=== PATIENT | female | born 1975 | race Caucasian/White ===

== ENCOUNTER 2025-09-04 19:43 | Outpatient (CLI) | payer BC, SELFPAY | END 2025-09-04 19:44 | disposition home or self-care (01) | LOC: AMB 09-05 14:58 | PROVIDERS: Visit Provider Emergency Medicine | DX: S89.91XA Unspecified injury of right lower leg, initial encounter (principal); W19.XXXA Unspecified fall, initial encounter; Y92.009 Unspecified place in unspecified non-institutional (private) residence as the place of occurrence of the external cause | CPT/HCPCS: A0425; A0427 ==

== ENCOUNTER 2025-09-04 20:16 | Day surgery (SDC) | payer BC, SELFPAY ==
--- OUTSIDE RECORDS SUMMARY | 2025-08-14 16:00 | XMS_ITS | Encounter Summary ---
[facility] [address], [place] [address] Care Team Providers Care Signals Intelligence Superintendent Name Role Phone Fior Leo PA-C Primary Care Provider [phone]- [phone] Reason for Referral * Procedure/Equipment (Routine) - Authorized Specialty Diagnoses / Procedures Referred By Contac t Referred To Contact Diagnoses Hypersomnia Procedures Sleep Diagnostic Tests: HST Jillian Desai MD [address] [place] [address] [address] [place] [address] Phone: tel: fax: Referral ID Status Reason Start Date Expiration Date V isits Requested Visits Authorized [id number] Authorized 08/14/2025 11/13/2025 1 1 Encounter Details Date Type Department Care Team (Late st Contact Info) Description 08/14/2025 4:00 PM CDT [facility] [address] [place] [address] [id number] Jillian Desai MD [address] [place] [address] [address] [place], [place] [id number] Hypersomnia (Primary Dx) Social History Tobacco Use Types Packs/Day Years Used Date Smoking Tobacco: Every Day Cigarettes 1 20 Smokeless Tobacco: Never Comments:Smoking History Pac ks/day: Alcohol Use Standard Drinks/Week Comments Yes 6 (1 standard drink = 0.6 oz pur e alcohol) 2-3 beers on some weekend PHQ-2 Answer Date Recorded PHQ-2 Score 0 07/09/2025 Hunger Vital Sign Answer Date Recorded Within the past 12 months, y ou worried that your food would run out before you got the money to buy more. Never true Within the past 12 months, t he food you bought just didn't last and you didn't have money to get more. Sometimes true PRAPARE - Transportation Answer Date Re corded In the past 12 months, has l ack of transportation kept you from medical appointments or from getting medications? No 06/15 In the past 12 months, has l ack of transportation kept you from meetings, work, or from getting things needed for daily living? No 07/08/2025 Housing Stability Vital Sign Answer Marvin e Recorded In the last 12 months, was t here a time when you were not able to pay the mortgage or rent on time? Yes 07/08/2025 In the past 12 months, how m any times have you moved where you were living? 0 07/08/2025 At any time in the past 12 m [facility], were you homeless or living in a skilled nursing (including now)? No 07/08/2025 Comments No Sex and Gender Information Value Date Recorded Sex Assigned at Not on file Legal Sex Female 6:31 AM CDT Gender Identity Not on file Sexual Orientation Not on file documented as of this encounter Patient Instructions * Patient Instructions* Jillian Desai MD - 08/14/2025 4:00 PM CDT Possible Sleep Apnea - Home sleep study - follow up me or Sleep [facility] If you have not heard in a week please call [phone] If you need to check benefits and coverage for the Home Sleep Study: Procedural Code: 06116 documented in this encounter Progress Notes * Jillian Desai MD - 08/14/2025 12:00 AM CDT NAME: PETER FOLEY CSN: [id number] CLINIC NOTE SLEEP EVALUATION DATE OF SERVICE: 08/14/2025 : 1975 SUBJECTIVE: She is a 50-year-old woman being seen via telemedicine for possible sleep-disordered breathing and excessive daytime hypersomnolence. She does snore very loudly, sometimes wakes herself up in the middle of the night. This has been going on for over a year. She is quite sleepy at work. She typically goes to bed at 9 and 10, and is up at 4:30 for work. 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 Sometimes, she does fall asleep at her job. On weekends, she will sleep longer. She takes 3-4 naps on the weekends, 1-2 during the week. She has been told she snored. She has 2 caffeinated beverages per day. Her [place] Sleepiness Score is 10. Her brother has obstructive sleep apnea and her mother is treated for narcolepsy. BMI is 37. ASSESSMENT AND RECOMMENDATIONS: Possible sleep-disordered breathing. Given her loud snoring and severe daytime hypersomnolence, there is a chance she has obstructive sleep apnea. Given the family history for narcolepsy, we did discuss the diagnosis and treatment of both. After discussion, we will proceed with a home polysomnogram. She will then follow up in Sleep Clinic. If she does get treated for sleep apnea, then we would have to confirm that her daytime hypersomnolence has improved. If her sleep study is nondiagnostic, I would then consider an in-lab study given her very severe daytime hypersomnolence. Her questions were answered. JILLIAN DESAI MD ANIYA/AQS /[id number] documented in this encounter Plan of Treatment Upcoming Encounters Date Type Department Care Team (Late st Contact Info) Description 12/03/2025 11:30 AM LINUX UNIX SYSTEM ADMINISTRATOR Telemedicine [place] [id number] Psychiatry [address] [facility] [place] [address] Yadira Amaya MD [address] [place] [address] 02/12/2026 2:00 PM CDT Telemedicine [facility] [address] [facility] [address] [place] [address] Rossi Dowd PALynnC [address] [place] [address] 02/12/2026 3:00 PM CDT Telemedicine [facility] [address] [facility] [address] [place] [address] Carmelina Joseph, SHANNANN, LD [address] [place], [place] [phone] Scheduled Orders Name Type Priority Associated Diagnoses Orde r Schedule Sleep Diagnostic Tests: HST Sleep Study Routine Hypersomnia 1 Occurrences starting 08/14/2025 documented as of this encounter Visit Diagnoses Diagnosis Hypersomnia- Primary Hypersomnia, unspecified documented in this encounter Care Teams Signals Intelligence Superintendent Relationship Specialty Start Date End Date Fior Leo, PA-C [address] [place] [address] PCP - General Physician Dietetic Aide 05/13/15 documented as of this encounter
--- OUTSIDE RECORDS SUMMARY | 2025-08-20 09:30 | XMS_ITS | Encounter Summary ---
Author Organization [facility] Address [address], [place] [address] Care Team Providers Care Sales Route Driver Helper Name Role Phone Fior Leo PA-C Primary Care Provider [phone]- [phone] Encounter Details Date Type Department Care Team (Late st Contact Info) Description 08/20/2025 9:30 AM CDT Telemedicine [place] [address] Psychiatry [address] [facility]. [place], [place] [id number] Yadira Amaya MD [address] [place], [place] [id number] Bipolar I disorder in remission ([facility]C) (Primary Dx); PTSD (post-traumatic stress disorder) ([facility]); Borderline personality disorder ([facility]); Fibromyalgia Social History Tobacco Use Types Packs/Day Years [...] any time in the past 12 m [facility], were you homeless or living in a [facility] (including now)? No 07/08/2025 Comments No Sex and Gender Information Value Date Recorded Sex Assigned at Not on file Legal Sex Female 6:31 AM CDT Gender Identity Not on file Sexual Orientation Not on file documented as of this encounter Progress Notes * Yadira Amaya MD - 08/20/2025 9:30 AM CDT PSYCHIATRY FOLLOW-UP TELEHEALTH (VIDEO) VISIT This appointment was conducted via telehealth (video, later switched to video for tech reasons) as it is the patient???s preference and it is appropriate for the treatment being provided. Patient location: home, Clinician location: clinic ID/CC: Ms. Elam is a very pleasant 50 y.o. female presenting today for treatment of bipolar disorder, BPD and PTSD. INTERVAL HISTORY: The patient's last visit with me was about 3 months ago, at which time propanolol dosing was changed for better treatment of anxiety and restlessness. She states today she's been taking propanolol when she feels angry and agitated and it helps calm her down. No dizziness or sedation from it, but feels a little tired. This helps her at work when she gets really angry and tearful. She's open to an increased dose. It also helps her to call her mom and take deep breaths. Work has been really stressful lately and worsening her chronic joint pain. She got hired at a different job for the same company but they areslow rolling the paperwork, which is frustrating for her. Discussed ways of approaching HR professionally. Her mood has been good despite the work stress. She got a new puppy and it's going really well, brings her jaye. He's made me feel happy, every day I'm excited to go home. Anxiety has been ok. She'sdoing really well at home with limited stress. She was recently referred for a home sleep study due to risk factors for KEISHA. She sleeps well but doesn't feel rested in the day. She was also referred to the bariatric clinic but not able to get in until February. She denies s/s of soheila. She denies SI. She's taking each of her medications as prescribed, no new issues. Denies all s/s of TD. RATING SCALES: PHQ-9: not completed PANCHO-7: not completed Past Medications: Klonopin (helpful for panic), Buspar (since 2011, no effect), Duloxetine (up to 120 mg, decreased due to thyroid, helpful at 120 mg), lithium (seems like it's trying to help but dose too low, never been at higher than 600 mg/day), Seroquel (initially helpful for sleep and mood but lost effect, makes her groggy and hungry), Paxil (no sex drive), Lexapro (hives), Nortriptyline (anger), Wellbutrin (got varela), Zoloft (varela), Effexor (can't remember but no effect), Depakote (got sick), Abilify (no effect but didn't get a full trial), Lamictal (took in 2011, caused rash), Gabapentin (took for pain, can't remember affect on anxiety), Geodon (akathisia), trazodone (vivid dreams), hydroxyzine (rash, possible allergy), propanolol (no effect), Latuda (teeth grinding), Ambien (sleep walking/eating/driving). Never been on Invega, trileptal or tegretol. PERTINENT REVIEW OF SYSTEMS: As per history, otherwise negative. MENTAL STATUS EXAM: General: Pleasant, open, cooperative. Sitting at home alone. Speech: Normal rate and volume, well-articulated Mood: good Affect: appears euthymic, flexible, smiles easily, no tearfulness Thought Process: Coherent and relevant, no loose associations, good historian, not pressured Thought Content: Denies SI Orientation: Full Recent/Remote Memory: Not formally tested but normal by history and general recall of past events generally intact. Concentration/Attention: Good Language: Appropriate use Fund of Knowledge: Adequate, estimated as normal intelligence Insight: Improving Judgement: Fair LABORATORY and IMAGING DATA: Lab Results Component Value Date Hemoglobin A1C 5.3 02/26/2021 Hemoglobin A1C (Rapid) 5.1 04/24/2025 Lab Results Component Value Date Cholesterol 221 (H) 04/24/2025 HDL Cholesterol 66 04/24/2025 Triglyceride 112 04/24/2025 LDL, Calculated 133 (H) 04/24/2025 DIAGNOSES: ICD-10-CM 1. Bipolar I disorder in remission ([facility]) F31.70 2. PTSD (post-traumatic stress disorder) ([facility]) F43.10 3. Borderline personality disorder ([facility]) F60.3 4. Fibromyalgia M79.7 ASSESSMENT and PLAN: -- Increase propanolol to 20-30 mg bid prn for anxiety and restlessness. Hold for any s/s of hypotension. -- Continue Abilify 10 mg daily for mood stabilization and anxiety. Pt is aware of common and serious side effects of the medication and pt consents to treatment. Benefits outweigh this risk at this point. Defer metabolic labs to PCP/bariatric clinic. Monitor for TD. -- Continue bupropion XL 300 mg daily for depression, tolerating increased dose well. Monitor for recurrence of tremor, anxiety or cognitive side effects. -- Continue duloxetine 60 mg BID, helpful for FM pain and anxiety, longstanding dose. -- Continue gabapentin 300-600 mg qAM, 300-600 q noon and 1200 mg qPM for anxiety and pain. Will defer dose changes for pain to PMR/rheumatology. -- Follow up in 3 months, sooner if needed. Suicide assessment: Based on the patient's DSM diagnoses, past psychiatric history, current mental status examination, race, age, gender, and social supports, the patient's current risk of suicide isjudged as: low The treatment plan was reviewed with the patient, including both common and serious side effects ofrelevant medications. The patient has consented to the treatment outlined above. The patient was advised at initial visit to call 911 for active suicidal ideation and has been given my contact information for any other concerns or worsening symptoms. documented in this encounter Plan of Treatment Upcoming Encounters Date Type Department Care Team (Late st Contact Info) Description 12/03/2025 11:30 AM SF[employer] SOLUTION ARCHITECT Telemedicine [facility] [address] [place] [address]. [place] [address] Yadira Amaya MD [address] [place] [address] 02/12/2026 2:00 PM CDT Telemedicine [facility] [address] [facility] [address] [place] [address] Rossi Dowd PALynnC [address] [place] [address] 02/12/2026 3:00 PM CDT Telemedicine [facility] [address] [facility] [address] [place] [address] Carmelina Joseph RDN, LD [address] [place] [address] documented as of this encounter Visit Diagnoses Diagnosis Bipolar I disorder in remission (HRC)- Primary PTSD (post-traumatic stress disorder) ([facility]) Posttraumatic stress disorder Borderline personality disorder ([facility]) Borderline personality disorder Fibromyalgia Mylagia and myositis, unspecified documented in this encounter Care Teams Sales Route Driver Helper Relationship Specialty Start Date End Date Fior Leo, PA-C [address], [place] [id number] PCP - General Physician Systems Mgr 05/13/15 documented as of this encounter
--- OUTSIDE RECORDS SUMMARY | 2025-09-04 20:19 | XMS_ITS | Clinical Summary ---
Author Organization Formerly [facility] Address [address], [place] [address] Care Team Providers Care Child And Adolescent Therapist Name Role Phone Fior Leo PA-C Primary Care Provider [phone] Source Comments You are receiving this document as you are listed as the primary care provider,follow-up provider, or the patient has been referred to you for consultation.This is in compliance with the Medicare and[facility] E[facility] Incentive Program,which states Providers who transition their patient to another setting of careor provider of care or refers their patient to another provider of care shouldprovide summary care record for each transition of care or referral. [facility] Allergies Active Allergy Reactions Criticality Noted Date Comments Azithromycin 08/05/2004 PN: LW Reaction: EDEMA, GENERALIZED Ciprofloxacin Anaphylaxis High 07/06/2012 Cyclobenzaprine Anaphylaxis High 11/03/2010 Escitalopram Breathing Difficulty,Anaphylaxi s High 11/03/2010 Escitalopram Oxalate 03/25/2004 PN: LW Reaction: HIVES (Lexapro) Fluocinolone Anaphylaxis High 11/03/2010 Hydroxyzine Rash Low 12/21/2011 Lamotrigine 04/15/2005 PN: LW Reaction: Rash, Generalized (Lamictal) Escitalopram Oxalate Anaphylaxis High 07/06/2012 Nortriptyline Other, see comments 10/31/2014 PN: aggression, mood changes, hostility Penicillins Anaphylaxis High 10/14/2003 PN: LW Reaction: > Heart Rate,Palpitation Sulfa Antibiotics Anaphylaxis High 10/14/2003 PN: LW Reaction: ANAPHYLAXIS Trazodone Other, see comments 12/06/2011 Weird dreams Medications omeprazole (PRILOSEC) 20 MG capsuleIndicat ions:Abdominal bloating TAKE 1 CAPSULE BY MOUTH DAILY 1 HOUR BEFORE A MEAL. 90 Capsule 2 01/11/20 23 Active ALBUterol sulfate HFA 108 (90 Base) MCG/ACT inhaler Inhale 1-2 puffs by mouth every 4-6 hours as needed for Inhaler Use Indications: wheezing. Shake well before use. Do not exceed 12 puffs in 24 hours. 1 Each 06/30/20 23 Active traMADol (ULTRAM) 50 MG tablet Take 1 Tablet (50 mg) by mouth two times daily as needed. 07/25/20 23 Active ALBUterol sulfate HFA 108 (90 Base) MCG/ACT inhaler Inhale 2 Puffs every 4 hours as needed for Wheezing. 1 Each 11/01/20 23 Active ALBUterol sulfate HFA 108 (90 Base) MCG/ACT inhaler Inhale 2 Puffs every 4 hours as needed for Wheezing. 1 Each 11/20/19 25 Active ARIPiprazole (ABILIFY) 10 MG tablet Take 1 Tablet (10 mg) by mouth daily. 90 Tablet 3 02/20/20 25 Active meloxicam (MOBIC) 7.5 MG tablet Take 1-2 Tablets (7.5-15 mg) by mouth daily. 05/07/20 25 Active buPROPion (WELLBUTRIN XL) 300 MG 24 hour release tablet Take 1 tablet by mouth once daily 90 Tablet 08/13/20 25 Active propranolol (INDERAL) 10 MG tablet Take 2-3 Tablets (20-30 mg) by mouth two times daily as needed for Other (anxiety, restlessness , tremor). 30 Tablet 5 08/20/20 25 026 Active gabapentin (NEURONTIN) 300 MG capsule TAKE 1 TO 2 CAPSULES BY MOUTH EVERY MORNING, 1 TO 2 CAPSULES AT NOON AND 4 CAPSULES EVERY EVENING NEEDED FOR PAIN AND ANXIETY. 240 Capsule 5 08/20/20 25 Active DULoxetine (CYMBALTA) 60 MG delayed release capsule Take 1 Capsule (60 mg) by mouth two times a day. 180 Capsule 3 08/20/20 25 Active buPROPion (WELLBUTRIN XL) 300 MG 24 hour release tablet Take 1 Tablet (300 mg) by mouth daily. 90 Tablet 3 08/16/20 24 025 Discontinued DULoxetine (CYMBALTA) 60 MG delayed release capsule Take 1 Capsule (60 mg) by mouth two times a day. 180 Capsule 02/20/20 25 025 Discontinued(*M ed change OR same med OR reorder, new dose/directions ) gabapentin (NEURONTIN) 300 MG capsule TAKE 1 TO 2 CAPSULES BY MOUTH EVERY MORNING, 1 TO 2 CAPSULES AT NOON AND 4 CAPSULES EVERY EVENING NEEDED FOR PAIN AND ANXIETY. 240 Capsule 5 02/20/20 25 025 Discontinued(*M ed change OR same med OR reorder, new dose/directions ) propranolol (INDERAL) 10 MG tablet Take 1-2 Tablets (10-20 mg) by mouth two times daily as needed for Other (anxiety, restlessness , tremor). 05/20/20 25 025 Discontinued(*M ed change OR same med OR reorder, new dose/directions ) Active Problems Problem Noted Date Diagnosed Date Vitamin D deficiency 02/25/2023 Hyperlipidemia 07/12/2016 Borderline personality disorder 05/14/2015 Learning disorder 04/03/2015 Fibromyalgia 07/06/2012 Anxiety 07/06/2012 Tobacco use disorder 01/09/2010 Overview (07/06/2017): Tobacco Abuse Backache 01/09/2010 Overview (07/06/2017): Pain Back Myalgia 04/01/2008 Overview (07/06/2017): Fibromyalgia Bipolar I disorder, most recent episode depresse d, mild 04/14/2006 Overview (07/06/2017): LW Onset: ; Bipolar I disorder with depression, in remission Migraine 04/20/2003 Overview (07/06/2017): Migraine Without Aura Resolved Problems Problem Noted Date Diagnosed Date Resolved Date Borderline personality disorder 06/16/2015 08/23/2016 Bipolar 1 disorder, mixed 05/14/2015 PTSD (post-traumatic stress disorder) 05/14/2015 12/07/2017 PTSD (post-traumatic stress disorder) 04/03/2015 09/14/2017 Bipolar disorder 07/06/2012 12/24/2016 Personality disorder 07/06/2012 017 Chemical dependency 12/18/2011 08/20/20 25 Cocaine dependence in remission 10/30/2010 08/20/2025 Depressive disorder 07/27/2004 12/10/19 06 Overview (07/06/2017): LW Onset: [id number] ; Depression NOS Encounter for sterilization 07/27/2004 11/25/2004 Overview (07/06/2017): LW Onset: [id number] ; Tubal Ligation Elective Cocaine abuse in remission 0 02/19/2025 Overview (02/19/2025): This problem was marked as resolved by a user in a SmartForm. Encounters Date Type Department Care Team Description 08/27/2025 E-Visit Specialty Center [facility] [address] [place] [id number] Mychart, Generic Provider 08/20/2025 9:30 AM CDT Telemedicine [place] [address] [place] [address]. [place] [address] Yadira Amaya MD Bipolar I disorder in remission (HRC) (Primary Dx); PTSD (post-traumatic stress disorder) (HRC); Borderline personality disorder (HRC); Fibromyalgia 08/14/2025 4:00 PM CDT Telemedicine Specialty Center [facility] Pulmonary Medicine [address] [place] [id number] Jillian Desai MD Hypersomnia (Primary Dx) 08/14/2025 E-Visit Specialty Center [facility] Pulmonary Medicine [address] [place] [address] Mychart, Generic Provider 08/13/2025 Refill [facility] [address] [place] [address]. [place] [address] Yadira Amaya MD Refill 07/17/2025 E-Visit [facility] [address] [place] [address] [address] [place] [address] Melvi Ziegler 07/10/2025 Results Follow-Up [address] [address] Fior Leo PA-C 07/09/2025 12:15 PM CDT Lab Visit [facility] [address] [place] [id number] Need for hepatitis C screening test; Encounter for long-term (current) use of medications; Elevated blood pressure reading without diagnosis of hypertension; Fatigue, unspecified type 07/09/2025 11:30 AM CDT Office Visit [address] [address] Fior Leo PA-C Well adult exam (Primary Dx); Need for hepatitis C screening test; Encounter for long-term (current) use of medications; Elevated blood pressure reading without diagnosis of hypertension; Fatigue, unspecified type; Snoring; Obesity, Class II, BMI 35-39.9; Vitamin D deficiency (HRC); Fibromyalgia; Tobacco use disorder (HRC) 07/09/2025 E-Visit [address] [address] Fior Leo PA-C 06/14/2025 Nurse Triage [address] [address] Fior Leo PA-C Follow-up 06/11/2025 8:35 AM CDT Ancillary Procedure [facility] [address] [place] [phone] Jose Armando Cisse, NIDA, REFERENCE TEST CLERK Lower abdominal pain 06/11/2025 8:20 AM CDT Office Visit [place] [address] [facility] [address] [place] [phone] Jose Armando Cisse, DEAD MAIL CHECKER, REFERENCE TEST CLERK Dysuria; Lower abdominal pain from Last 3 Months Immunizations Immunization Administration Dates Next Due DTaP 04/13/2006 Flu Vac Preserv Free (3+yrs) 10/20/2015 HepB Adult (Engerix-B, 20+ y rs, 3 dose series) 09/22/2020 HepB Adult (Heplisav-B, 19+ yrs, 2 dose series) 12/27/2022 Influenza IIV4 (Quadrivalent ) 0.5mL (61081) 10/20/2015 Influenza, Unspecified Formulation 12/19/2011 PPSV23 (Pneumovax) 05/31/2018(Deferred: Patient Refused) TDAP (ADACEL) 04/13/2006 Td 06/30/2016,12/10/1999 Family History Medical History Relation Name Comments High Cholesterol Father Mental Disorder Father depression Other[Other] Maternal Grandmother Thyroid Disorder Maternal Grandmother Cancer, Other Other 1 cancer both si porfirio of family Not sure waht Cancer, Breast Other 2 God-mother Diabetes Paternal Grandfather High Cholesterol Paternal Grandfather Diabetes Paternal Grandmother High Cholesterol Paternal Grandmother Amblyopia/Strabismus Negative Family History Cataract Negative Family History Glaucoma Negative Family History Macular Degeneration Negative Family History Retinal Detachment Negative Family History Stroke Negative Family History Relation Name Status Comments Father Alive Mother Alive Brother 1 Alive Brother 2 Alive Brother 3 Alive Daughter 1 Alive Daughter 2 Alive Maternal Grandfather Maternal Grandmother Alive Other 1 Other 2 Paternal Grandfather Paternal Grandmother Sister Alive Son Alive Social History Tobacco Use Types Packs/Day Years Used Date Smoking Tobacco: Every Day Cigarettes 1 20 Smokeless Tobacco: Never Tobacco Cessation:Ready to Q uit: Not Asked; Counseling Given: Not Answered Comments:Smoking History Packs/day: Alcohol Use Standard Drinks/Week Comments Yes 6 [...] any time in the past 12 [facility], were you homeless or living in a retirement (including now)? No 07/08/2025 Comments No Sex and Gender Information Value Date Recorded Sex Assigned at Not on file Legal Sex Female 6:31 AM CDT Gender Identity Not on file Sexual Orientation Not on file Last Filed Vital Signs Vital Sign Reading Time Taken Comments Blood Pressure 123/92 07/09/2025 11:27 AM CDT Pulse 88 07/09/2025 11:27 AM CDT Temperature 36.4 C (97.5 F) 06/11/2025 8:04 AM CDT Respiratory Rate 18 06/11/2025 8:04 AM CDT Oxygen Saturation 100% 06/11/2025 8:04 AM CDT Inhaled Oxygen Concentration - - Weight 100.2 kg (221 lb) 07/09/2025 11:17 AM CDT Height 162.6 cm (5' 4) 02/19/2025 1:23 PM CDT Body Mass Index 37.93 02/19/2025 1:23 PM CDT Plan of Treatment Upcoming Encounters Date Type Department Care Team (Late st Contact Info) Description 12/03/2025 11:30 AM TELEVISION ANCHOR Telemedicine [facility] 3800 Psychiatry [address] [facility] [place] [address] Yadira Amaya MD [address] [place] [address] 02/12/2026 2:00 PM CDT Telemedicine [facility] [address] [facility] [address] [place] [address] Rossi Dowd PALynnC [address] [place] [address] 02/12/2026 3:00 PM CDT Telemedicine [facility] [address] [facility] [address] [place] [address] Carmelina Joseph RDN, LD [address] [place], [place] [id number] Health Maintenance Due Date Last Done Comments Mammogram 1976 Pneumococcal Vaccine (1 of 2 - PCV) 1995 FIT Colon Cancer Screening 2020 HepB Vaccine (3) 02/21/2023 12/27/2022, 09/22/2020 COVID-19 Vaccine (1 - season) 2025 Influenza Vaccine (#1) 2025 5, 10/20/2015, 12/19/2011 DTaP/Tdap/Td Vaccine (4 - Tdap) 06/30/2026 06/30/2016, 04/13/2006, 04/13/2006, Additional history exists Adult Preventive Visit 07/09/2026 , 01/19/2018, 07/06/2012 Zoster/Shingles Vaccine (1 of 2) 2026 Diabetes Screening- (based on age and BMI) 04/24/2028 04/24/2025, 05/20/2022, 02/26/2021, Additional history exists Cervical Cancer Screening 04/24/20302024, 01/19/2018, 01/19/2018, Additional history exists Cholesterol 04/24/2030 04/24/2025, 0705/2022, 02/26/2021, Additional history exists HIV Screening (Preventive Services) Completed 07/06/2012, 07/27/2004, 10/30/1998 Hep C Screening (Preventive Services) Completed 07/09/2025 HepA Vaccine Aged Out No longer eligi ble based on patient's age to complete this topic Hib Vaccine Aged Out No longer eligi ble based on patient's age to complete this topic IPV (Polio) Vaccine Aged Out No longe r eligible based on patient's age to complete this topic MCV4 Vaccine Aged Out No longer eligi ble based on patient's age to complete this topic Meningococcal B Vaccine Aged Out No l onger eligible based on patient's age to complete this topic Procedures Procedure Name Priority Date/Time Associated Diagnosis Comments HEPATITIS C ANTIBODY, WITH REFLEX (ANTI-HCV) Routine 07/09/2025 12:24 PM CDT Need for hepatitis C screening test ELECTROLYTE PANEL Routine 07/09/2025 12: 24 PM CDT Elevated blood pressure reading without diagnosis of hypertension TSH, SENSITIVE Routine 07/09/2025 12:24 PM CDT Fatigue, unspecified type CREATININE / GFR Routine 07/09/2025 12:2 4 PM CDT Encounter for long-term (current) use of medications Elevated blood pressure reading without diagnosis of hypertension XR ABD FLAT/KUB 1 VIEW STAT 06/11/2025 8:40 AM CDT Lower abdominal pain URINALYSIS ROUTINE, MICRO/CULTURE IF POS STAT 06/11/2025 8:07 AM CDT Dysuria HGB A1C Routine 04/24/2025 12:38 PM CDT Screening for diabetes mellitus LIPID PANEL & DIRECT LDL (IF NEEDED) Routine 04/24/2025 12:38 PM CDT Hyperlipidemia, unspecified hyperlipidemia type (HRC) HPV WITH 16 18 GENOTYPING, CERVICAL/ENDOCERVIC AL Routine 04/24/2025 12:34 PM CDT Special screening examination for human papillomavirus (HPV) HIV ANTIBODY Routine 07/06/2012 4:36 PM CDT Screening for HIV (human immunodeficiency virus) from Last 3 Months or Most Recently Relevant to Health Maintenance Results * Creatinine / GFR (07/09/2025 12:24 PM CDT) Creatinine 0.83 0.55 - 1.02 mg/dL 07/09/2025 6:03 PM CDT [facility] GFR, Estimated >60 >60 mL/min/1.7 3m2 07/09/2025 6:03 PM T [facility] Blood Venipuncture / Unknown 07/09/2025 12:24 PM CDT 07/09/2025 12:24 PM CDT Fior Leo PA-C LAB_1 Final Resu lt Performing Organization Address City/[facility]/ZIP Co de Phone Number [facility] CLIA: [id number] [place] [address] * TSH (07/09/2025 12:24 PM CDT) Pathologist [facility] TSH, Sensitive 1.99 0.30 - 4.50 uIU/mL 07/09/2025 7:36 PM CDT [facility] Blood Venipuncture / Unknown 07/09/2025 12:24 PM CDT 07/09/2025 12:24 PM CDT Fior Leo PA-C LAB_1 Final Resu lt [facility] CLIA: [id number] [address] [place] [id number] [place] [address] * Electrolyte Panel (07/09/2025 12:24 PM CDT) Pathologist [facility] Sodium 138 136 - 145 mmol/L 07/09/2025 6:03 PM T [facility] Potassium 3.9 3.5 - 5.1 mmol/L 07/09/2025 6:03 PM T [facility] Chloride 107 98 - 109 mmol/L 07/09/2025 6:03 PM T [facility] CO2 26 20 - 29 mmol/L 07/09/2025 6:03 PM T [facility] Anion Gap 5 6 - 16 mmol/L 07/09/2025 6:03 PM [facility] Blood Venipuncture / Unknown 07/09/2025 12:24 PM CDT 07/09/2025 12:24 PM CDT Fior Leo PA-C LAB_1 Final Resu lt Performing Organization Address [facility]/ZIP Co de Phone Number [facility] CLIA: [id number] [place] [address] * Hepatitis C Antibody, with Reflex (07/09/2025 12:24 PM CDT) Hepatitis C Antibody Negative (Non Reactive) Negative (Non Reactive) 07/09/2025 7:37 PM CDT [facility] Comment:Antibodies to HCV no t detected. Does not exclude the possiblity of exposure to HCV. Blood Venipuncture / Unknown 07/09/2025 12:24 PM CDT 07/09/2025 12:24 PM CDT Fior Leo PA-C LAB_1 Final Resu lt Performing Organization Address [facility] Co de Phone Number [facility] CLIA: [id number] [address] [place] [address] * XR Abd Flat/KUB 1 View (06/11/2025 8:40 AM CDT) Anatomical Region Laterality Modality Abdomen Digital Radiogra phy Narrative 06/11/2025 8:42 AM CDT EXAM: XR ABD FLAT/KUB 1 VIEW INDICATION: lower abd discomfort/bloating COMPARISON: None. FINDINGS: Single-view, two images. Nonobstructive bowel gas pattern. Scattered small to moderate amounts of stool and gas in the colon. No obvious stones are seen overlying the renal shadows, along the expected course of the ureters, or overlying the expected location of the urinary bladder. Signed by: Wesley Jameson 06/11/2025 8:42 AM Procedure Note Wesley Jameson MD - 06/11/2025 EXAM: XR ABD FLAT/KUB 1 VIEW INDICATION: lower abd discomfort/bloating COMPARISON: None. FINDINGS: Single-view, two images. Nonobstructive bowel gas pattern. Scatteredsmall to moderate amounts of stool and gas in the colon. No obviousstones are seen overlying the renal shadows, along the expected course ofthe ureters, or overlying the expected location of the urinary bladder. Signed by: Wesley Jameson 06/11/2025 8:42 AM us Jose Armando Cisse DEAD MAIL CHECKER, REFERENCE TEST CLERK RAD GD Final Re sult * Urinalysis Routine, Micro/Culture if Pos: Clean Catch (06/11/2025 8:07 AM CDT) Urine Microscopic Evaluation Reflex Order Comment Urinalysis results do not meet criteria for urine microscopic evaluation reflex. 06/11/2025 8:18 AM [facility] Color Yellow 06/11/2025 8:18 AM [facility] Clarity Clear Clear 06/11/2025 8:18 AM [facility] Specific [place] 1.015 1.005 - 1.030 06/11/2025 8:18 AM [facility] pH 7.5 5.0 - 8.0 06/11/2025 8:18 AM [facility] Protein Negative Neg/Trace mg/dL 06/11/2025 8:18 AM [facility] Glucose Negative Negative mg/dL 06/11/2025 8:18 AM [facility] Ketones Negative Negative mg/dL 06/11/2025 8:18 AM [facility] Urobilinogen 0.2 <2.0 EU/dL 06/11/2025 8:18 AM [facility] Bilirubin Negative Negative 06/11/2025 8:18 AM [facility] Blood Negative Neg/Trace 06/11/2025 8:18 AM [facility] Nitrite Negative Negative 06/11/2025 8:18 AM [facility] Leukocyte Esterase Negative Negative 06/11/2025 8:18 AM [facility] Source Clean Catch 06/11/2025 8:18 AM [facility] Urine URINE SPECIMEN COLLECTION, CLEAN CATCH / Unknown Non-blood Collection / Unknown 06/11/2025 8:07 AM CDT 06/11/2025 8:13 AM CDT Brad ZURITA LAB_1 Final Result Performing Organization Address [facility]/ZIP Co de Phone Number [facility] [address] [address] [place] [address] * (ABNORMAL) Lipid Panel & Direct LDL (if Needed) (04/24/2025 12:38 PM CDT) Cholesterol 221(H) 0 - 199 mg/dL 04/24/2025 6:36 PM CDT [facility] Triglyceride 112 <=149 mg/dL 04/24/2025 6:36 PM T [facility] HDL Cholesterol 66 >=40 mg/dL 6:36 PM T [facility] LDL, Calculated 133(H) <130 mg/dL 6:36 PM T [facility] Non HDL Chol, Calculated 155 <=159 mg/dL 04/24/2025 6:36 PM T [facility] Cholesterol/HDL Ratio 3.3 <=5.0 04/24/2025 6:36 PM [facility] Hours Fasting 0.0 8 - 12 Hours 04/24/2025 6:36 PM [facility] Blood Venipuncture / Unknown 04/24/2025 12:38 PM CDT 04/24/2025 12:38 PM CDT Fior Leo PA-C LAB_1 Final Resu lt Performing Organization Address City/[facility]/ZIP Co de Phone Number [facility] [address] [place] [address], [facility] * Hgb A1C (04/24/2025 12:38 PM CDT) Hemoglobin A1C (Rapid) 5.1 <=5.6 % 04/24/2025 5:38 PM CDT [facility] Estimated Average Glucose (Calc) 100 < 117 mg/dL 04/24/2025 5:38 PM CDT [facility] Comment:Estimated average gl ucose (eAG) converts A1c into glucose units (mg/dL) and estimates average glucose over the past approximately 3 months. The eAG reference interval (<117 mg/dL) corresponds to an A1c of <5.7%. Blood Venipuncture / Unknown 04/24/2025 12:38 PM CDT 04/24/2025 12:38 PM CDT Mario [facility] - 04/24/2025 5:38 PM CDT The test method used for this Hemoglobin A1c result can experience interference from elevated hemoglobin and other hemoglobin variants. In patients with results that do not correlate clinically, contact the lab for further direction. us Fior Leo PA-C LAB_1 Final Resu lt [facility] [address] [place] [address], [facility] * HPV Genotyping PCR (Cervical/Endocervical ONLY) with Reflex Cytology (Pap) if Indicated (2:34 PM CDT) HPV High Risk Type 16 PCR Not Detected Not detected 04/25/2025 2:[address] [facility] HPV High Risk Type 18 PCR Not Detected Not Detected 04/25/2025 2:[address] [facility] HPV High Risk Other Than 16/18 Not Detected Not detected 04/25/2025 2:[address] [facility] Cervical Broom ENTIRE ENDOCERVIX / Unknown 04/24/2025 12:34 PM CDT 04/24/2025 1:56 PM CDT [facility] - 04/25/2025 2:24 PM CDT The Keith HPV test is a qualitative in vitro test for the detection of Human Papillomavirus in [facility] patient specimens. The test utilizes amplification of target DNA by Polymerase Chain Reaction (PCR) and nucleic acid hybridization for the detection of 14 high-risk (HR) HPV types. The assay tests for high risk types (16, 18, 31, 33, 35, 39, 45, 51, 52, 56, 58, 59, 66, and 68). us Fior B Leo PA-C LAB_1 Final Resu lt [address] [address], [facility] * HIV ANTIBODY (07/06/2012 4:36 PM CDT) HIV 1/2 Antibody Negative (Non Reactive) [facility] Comment: HIV Antibody testing may be falsely negative during the window period. If the patient has had recent exposure (within the past four weeks), consider contacting Infectious Diseases for clarification. 07/06/2012 4:36 PM CDT 07/06/2012 4:45 PM CDT us Yessenia Ontiveros DEAD MAIL CHECKER, REFERENCE TEST CLERK LAB_1 Final R esult [facility] [address] [address] from Last 3 Months or Most Recently Relevant to Health Maintenance Insurance [facility] Advance Directives * Full Code (Latest Code Status on File) Date Activated Date Inactivated Comments 05/30/2015 4:00 PM 06/01/2015 3:45 PM Care Teams Child And Adolescent Therapist Relationship Specialty Start Date End Date Fior Leo PA-C [address] [place] [address] PCP - General Physician Speedboat Driver 05/13/15
--- OUTSIDE RECORDS SUMMARY | 2025-09-04 20:19 | XMS_ITS | Encounter Summary ---
Author Organization [facility] Address [address], [place] [address] Care Team Providers Care Cigarette Paper Tester Name Role Phone Fior Leo PA-C Primary Care Provider +1- [phone] Encounter Details Date Type Department Care Team (Late st Contact Info) Description 08/14/2025 [facility] 39[address] Pulmonary Medicine [address] [place], [place] [address] Mychart, [place] [address] Social History Tobacco Use Types Packs/Day Years [...] any time in the past 12 m [facility], were you homeless or living in a longterm (including now)? No 07/08/2025 Comments No Sex and Gender Information Value Date Recorded Sex Assigned at Not on file Legal Sex Female 6:31 AM CDT Gender Identity Not on file Sexual Orientation Not on file documented as of this encounter Plan of Treatment Upcoming Encounters Date Type Department Care Team (Late st Contact Info) Description 12/03/2025 11:30 AM STATION TENDER Telemedicine [facility] 3800 Psychiatry [address] [facility] [place] [address] Yadira Amaya MD [address] [place] [address] 02/12/2026 2:00 PM CDT Telemedicine [facility] [address] [facility] [address] [place] [address] Rossi Dowd, PALynnC [address] [place] [address] 02/12/2026 3:00 PM CDT Telemedicine [facility] [address] [facility] [address] [place] [address] Carmelina Joseph RDN, LD [address] [place] [address] documented as of this encounter Visit Diagnoses Not on filedocumented in this encounter Care Teams Cigarette Paper Tester Relationship Specialty Start Date End Date Fior Leo PALynnC [facility] [place] [address] PCP - General Physician Early Intervention Specialist 05/13/15 documented as of this encounter
--- OUTSIDE RECORDS SUMMARY | 2025-09-04 20:19 | XMS_ITS | Encounter Summary ---
Author Organization [facility] Address [address] [address] Care Team Providers Care Synthetic Staple Extruder Name Role Phone Fior Leo PA-C Primary Care Provider +1- [phone] Encounter Details Date Type Department Care Team (Late st Contact Info) Description 04/03/2015 Scanned History External to External, [place] [address] EXTERNAL - PSYCHIATRIC EVAL Social History Tobacco Use Types Packs/Day Years Used Date Smoking Tobacco: Every Day Alcohol Use Standard Drinks/Week Comments No 0 (1 standard drink = 0.6 oz pur e alcohol) Comments No Sex and Gender Information Value Date Recorded Sex Assigned at Not on file Legal Sex Female 6:31 AM CDT Gender Identity Not on file Sexual Orientation Not on file documented as of this encounter Plan of Treatment Upcoming Encounters Date Type Department Care Team (Late st Contact Info) Description 12/03/2025 11:30 AM COFFEE SHOP MANAGER Telemedicine [facility] 38[address] Psychiatry [address] [facility] [place], [place] [address] Yadira Amaya MD [address] [place], [place] [address] 02/12/2026 2:00 PM CDT Telemedicine [facility] [address] [facility] [address] [place], [place] [address] Rossi Dowd, PALynnC [address] [place] [address] 02/12/2026 3:00 PM CDT Telemedicine [facility] [address] [facility] [address] [place] [address] Carmelina Joseph RDN, LD [address] [facility] [place] [id number] documented as of this encounter Visit Diagnoses Not on filedocumented in this encounter Additional Health Concerns Infection Onset Date Last Indicated Resolved Time R/O COVID19 05/20/2022 05/20/2022 05/21/2022 1:16 AM CDT R/O COVID19 09/01/2022 09/01/2022 09/02/2022 2:22 AM CDT COVID19 09/01/2022 09/01/2022 09/12/2022 3:17 AM CDT documented as of this encounter Care Teams Synthetic Staple Extruder Relationship Specialty Start Date End Date Fior Leo PALynnC [address] [place] [address] PCP - General Physician Finisher Fine Diamond Dies 05/13/15 documented as of this encounter
--- OUTSIDE RECORDS SUMMARY | 2025-09-04 20:19 | XMS_ITS | Encounter Summary ---
Author Organization [facility] Address [address], [place] [address] Care Team Providers Care Business Intelligence Reporting Analyst Name Role Phone Firo Leo PA-C Primary Care Provider +1- [phone] Encounter Details Date Type Department Care Team (Late st Contact Info) Description 04/17/2015 Scanned History External to External, [place] [address] EXTERNAL - PSYCHIATRIC FOLLOW UP Social History Tobacco Use Types Packs/Day Years [...] Encounters Date Type Department Care Team (Late Contact Info) Description 12/03/2025 11:30 AM SIGNAL WIRER Telemedicine [facility] 3800 Psychiatry [address] [facility] [place], [place] [address] Yadira Amaya MD [address] [place], [place] [address] 02/12/2026 2:00 PM CDT Telemedicine [facility] [address] [facility] [address] [place], [place] [address] Rossi Dowd, PALynnC [address] [place] [address] 02/12/2026 3:00 PM CDT Telemedicine [facility] [address] [facility] [address] [place] [address] Carmelina Joseph RDN, LD [address] [facility] [place] [address] documented as of this encounter Visit Diagnoses Not on filedocumented in this encounter Additional Health Concerns Infection Onset Date Last Indicated Resolved Time R/O COVID19 05/20/2022 05/20/2022 05/21/2022 1:16 AM CDT R/O COVID19 09/01/2022 09/01/2022 09/02/2022 2:22 AM CDT COVID19 09/01/2022 09/01/2022 09/12/2022 3:17 AM CDT documented as of this encounter Care Teams Business Intelligence Reporting Analyst Relationship Specialty Start Date End Date Fior Leo PALynnC [address] [place] [address] PCP - General Physician Surveillance Operator 05/13/15 documented as of this encounter
--- OUTSIDE RECORDS SUMMARY | 2025-09-04 20:19 | XMS_ITS | Encounter Summary ---
Author Organization [facility] Address [address] [address] Care Team Providers Care Senior Project Leader/Team Lead Name Role Phone Fior Leo PA-C Primary Care Provider +1- [phone] Encounter Details Date Type Department Care Team (Late st Contact Info) Description 08/27/2025 [facility] [address] Sleep Lab Beds [address] [place], [place] [address] Mychart, [place] [address] Social History Tobacco Use Types Packs/Day Years [...] time in the past 12 m [facility], were you homeless or living in a penitentiary (including now)? No 07/08/2025 Comments No Sex and Gender Information Value Date Recorded Sex Assigned at Not on file Legal Sex Female 6:31 AM CDT Gender Identity Not on file Sexual Orientation Not on file documented as of this encounter Plan of Treatment Upcoming Encounters Date Type Department Care Team (Late st Contact Info) Description 12/03/2025 11:30 AM TOOL MAKER Telemedicine [facility] 3800 Psychiatry [address] [place] [address] Yadira Amaya MD [address] [place] [address] 02/12/2026 2:00 PM CDT Telemedicine [facility] [address] [facility] [address] [place] [address] Rossi Dowd PALynnC [address] [place] [address] 02/12/2026 3:00 PM CDT Telemedicine [facility] [address] [facility] [address] [place] [address] Carmelina Joseph RDN, LD [address] [place] [address] documented as of this encounter Visit Diagnoses Not on filedocumented in this encounter Care Teams Senior Project Leader/Team Lead Relationship Specialty Start Date End Date Fior Leo PALynnC [facility] [place], [place] [id number] PCP - General Physician Pharmacy Specialist 05/13/15 documented as of this encounter
--- OUTSIDE RECORDS SUMMARY | 2025-09-04 20:19 | XMS_ITS | Clinical Summary ---
Author Organization [facility] Address [address] [place] [address] Care Team Providers Care Airfreight Loading Supervisor Name Role Phone Fior Leo Primary Care Provider [phone] Allergies Active Allergy Reactions Criticality Noted Date Comments Azithromycin 08/05/2004 PN: LW Reaction: EDEMA, GENERALIZED Cyclobenzaprine Anaphylaxis,Shortnes s Of Breath High 11/03/2010 Escitalopram Anaphylaxis,Difficul ty breathing,Shortness Of Breath High 03/25/2004 PN: LW Reaction: HIVES (Lexapro) Fluocinolone Anaphylaxis High 11/03/2010 Hydroxyzine Rash Low 12/21/2011 Lamotrigine Rash Low 04/15/2005 PN: LW Reaction: Rash, Generalized (Lamictal) Nortriptyline Other (See Comments) 10/31/2014 Mood swings, becomes aggressive PN: aggression, mood changes, hostility Penicillins Anaphylaxis,Hives High 10/14/2003 PN: LW Reaction: > Heart Rate,Palpitation Quinolones Anaphylaxis,Shortnes s Of Breath High 10/11/2011 Sulfa Antibiotics Anaphylaxis,Shortnes s Of Breath High 10/14/2003 PN: LW Reaction: ANAPHYLAXIS Trazodone Other (See Comments) 12/06/2011 Weird dreams Medications No known medications Encounters Date Type Department Care Team Description 06/17/2025 Telephone [facility] [address] [place] [address] Shannan Zaragoza RN Results 06/14/2025 12:01 PM CDT - 06/14/2025 3:21 PM CDT Emergency [facility] Emergency Dept [address] [place] [address] Raul Martinez MD Acute cystitis without hematuria (Primary Dx); Pelvic pain Discharge Disposition: Home or Self Care 06/14/2025 Travel from Last 3 Months Social History Tobacco Use Types Packs/Day Years Used Date Smoking Tobacco: Never Assessed Comments No Sex and Gender Information Value Date Recorded Sex Assigned at Not on file Legal Sex Female 11:50 AM CDT Gender Identity Not on file Sexual Orientation Not on file Last Filed Vital Signs Vital Sign Reading Time Taken Comments Blood Pressure 132/96 06/14/2025 3:10 PM CDT Pulse 76 06/14/2025 3:09 PM CDT Temperature 36.4 C (97.5 F) 06/14/2025 12:00 PM CDT Respiratory Rate 18 06/14/2025 3:09 PM CDT Oxygen Saturation 98% 06/14/2025 3:09 PM CDT Inhaled Oxygen Concentration - - Weight 99.1 kg (218 lb 7.6 oz) 06/14/2025 12:00 PM CDT Height 165.1 cm (5' 5) 06/14/2025 12:00 PM CDT Body Mass Index 36.36 06/14/2025 12:00 PM CDT Plan of Treatment Health Maintenance Due Date Last Done Comments ADVANCE CARE PLANNING 1976 ANNUAL REVIEW OF HM ORDERS 1976 CT COLONOGRAPHY 1976 FIT 1976 FLEX SIG 1976 MAMMO SCREENING 1976 sDNA (Cologuard) 1976 COLONOSCOPY 1986 COLORECTAL CANCER SCREENING 1986 HEPATITIS C SCREENING 1994 PAP 1997 LIPID 2016 YEARLY PREVENTIVE VISIT 01/19/2019 01/19/2018 HEPATITIS B VACCINE (3 of 3 - 19+ 3-dose series) 02/21/2023 12/27/2022, 09/22/2020 PHQ-2 (once per calendar year) 2024 COVID-19 VACCINE ( - season) 2025 INFLUENZA VACCINE (#1) 2025 10/20/2015, 2011 DTAP/TDAP/TD VACCINE (5 - Td or Tdap) 06/30/2026 06/30/2016, 04/13/2006, 04/13/2006, Additional history exists ZOSTER VACCINE (1 of 2) 2026 DIABETES SCREENING 06/14/2028 06/14/2025 HIV SCREENING Completed 08/15/2013, 07/06/2012 HPV VACCINE (No Doses Required) Completed MENINGITIS VACCINE Aged Out No longer eligible based on patient's age to complete this topic PNEUMOCOCCAL VACCINE: PEDIATRICS (0 to 5 YEARS) AND AT-RISK PATIENTS (6 to 49 YEARS) Aged Out No longer eligible based on patient's age to complete this topic Procedures Procedure Name Priority Date/Time Associated Diagnosis Comments US PELVIC TRANSABDOMINAL AND TRANSVAGINAL STAT 06/14/2025 2:42 PM CDT URINE CULTURE STAT 06/14/2025 2:00 PM CDT ROUTINE UA WITH MICROSCOPIC REFLEX TO CULTURE STAT 06/14/2025 2:00 PM CDT NEISSERIA GONORRHOEAE PCR STAT 06/14/2025 1:43 PM CDT CHLAMYDIA TRACHOMATIS PCR STAT 06/14/2025 1:43 PM CDT WET PREPARATION STAT 06/14/2025 1:43 PM CDT CBC WITH PLATELETS AND DIFFERENTIAL (LIMITED OCCURRENCES) STAT 06/14/2025 12:25 PM CDT CBC WITH PLATELETS AND DIFFERENTIAL STAT 06/14/2025 12:25 PM CDT LIPASE STAT 06/14/2025 12:25 PM CDT COMPREHENSIVE METABOLIC PANEL (LIMITED OCCURRENCES) STAT 06/14/2025 12:25 PM CDT URINE CULTURE STAT 06/14/2025 12:15 PM CDT HCG QUALITATIVE URINE STAT 06/14/2025 12:15 PM CDT ROUTINE UA WITH MICROSCOPIC REFLEX TO CULTURE STAT 06/14/2025 12:15 PM CDT from Last 3 Months Results * US Pelvic Complete with Transvaginal (06/14/2025 2:42 PM CDT) Anatomical Region Laterality Modality Abdomen/Pelvis Ultrasound 06/14/2025 2:42 PM CDT Impressions 06/14/2025 2:56 PM CDT IMPRESSION: No acute sonographic abnormality in the pelvis. No cause for pelvic pain is identified. Narrative 06/14/2025 2:56 PM CDT EXAM: US PELVIC TRANSABDOMINAL AND TRANSVAGINAL LOCATION: [facility] DATE: 06/14/2025 INDICATION: Pelvic pain. COMPARISON: None. TECHNIQUE: Transabdominal scans were performed. Endovaginal ultrasound was performed to better visualize the adnexa. FINDINGS: UTERUS: 7.7 x 4.8 x 4 cm. No uterine masses. Small complex nabothian cyst in the cervix measures 1.2 cm. ENDOMETRIUM: 6 mm. Normal smooth endometrium. RIGHT OVARY: 2.3 x 1.8 x 1.2 cm. Normal. LEFT OVARY: 3.4 x 2.7 x 1.8 cm. A 2.2 cm simple cyst in the left ovary is likely a dominant follicle. No significant free fluid. Procedure Note Tres Newell MD - 06/14/2025 EXAM: US PELVIC TRANSABDOMINAL AND TRANSVAGINAL LOCATION: [facility] DATE: 06/14/2025 INDICATION: Pelvic pain. COMPARISON: None. TECHNIQUE: Transabdominal scans were performed. Endovaginal ultrasound wasperformed to better visualize the adnexa. FINDINGS: UTERUS: 7.7 x 4.8 x 4 cm. No uterine masses. Small complex nabothian cystin the cervix measures 1.2 cm. ENDOMETRIUM: 6 mm. Normal smooth endometrium. RIGHT OVARY: 2.3 x 1.8 x 1.2 cm. Normal. LEFT OVARY: 3.4 x 2.7 x 1.8 cm. A 2.2 cm simple cyst in the left ovary islikely a dominant follicle. No significant free fluid. IMPRESSION: No acute sonographic abnormality in the pelvis. No cause for pelvic painis identified. us Raul Martinez MD IMG US ORDERABLES Final R esult * (ABNORMAL) UA with Microscopic reflex to Culture (06/14/2025 2:00 PM CDT) Only the most recent of2 resultswithin the time period is included. Color Urine Yellow Colorless, Straw, Light Yellow, Yellow 06/14/2025 2:22 PM CDT LABORATORY Appearance Urine Clear Clear 06/14/20 2:22 PM CDT LABORATORY Glucose Urine Negative Negative mg/dL 06/14/2025 2:22 PM CDT LABORATORY Bilirubin Urine Negative Negative 2:22 PM CDT LABORATORY Ketones Urine Negative Negative mg/dL 06/14/2025 2:22 PM CDT LABORATORY Specific [place] Urine 1.031 1.003 - 1.035 06/14/2025 2:22 PM CDT LABORATORY Blood Urine Negative Negative 06/14/2025 2:22 PM CDT LABORATORY pH Urine 6.5 5.0 - 7.0 06/14/2025 2:22 PM CDT LABORATORY Protein Albumin Urine 10(A) Negative mg/dL 06/14/2025 2:22 PM CDT LABORATORY Urobilinogen Urine 3.0(A) Normal mg/dL 06/14/2025 2:22 PM CDT LABORATORY Nitrite Urine Negative Negative 06/14/2025 2:22 PM CDT LABORATORY Leukocyte Esterase Urine Small(A) Negative 06/14/2025 2:22 PM CDT LABORATORY Bacteria Urine Few(A) None Seen /HPF 06/14/2025 2:22 PM CDT LABORATORY Mucus Urine Present(A) None Seen /LPF 06/14/2025 2:22 PM CDT LABORATORY RBC Urine 5(H) <=2 /HPF 06/14/2025 2:22 PM CDT LABORATORY WBC Urine 17(H) <=5 /HPF 06/14/2025 2:22 PM CDT LABORATORY Squamous Epithelials Urine 1 <=1 /HPF 06/14/2025 2:22 PM CDT LABORATORY Transitional Epithelials Urine <1 <=1 /HPF 06/14/2025 2:22 PM CDT LABORATORY Urine URINE SPECIMEN FROM URINARY CONDUIT / Unknown Non-blood Collection / Unknown 06/14/2025 2:00 PM CDT 06/14/2025 2:06 PM CDT Narrative LABORATORY - 06/14/2025 2:22 PM CDT Urine Culture ordered based on laboratory criteria Raul Martinez MD LAB - URINE ORDERABLES Fi nal Result LABORATORY [facility] Care Lab [address] Lab (1st floor, no room number) [place] [address] * (ABNORMAL) Urine Culture (06/14/2025 2:00 PM CDT) Only the most recent of2 resultswithin the time period is included. [facility] Culture 10,000-50,000 CFU/mL Escherichia coli(A) 06/16/2025 10:48 PM CDT [facility] Culture <10,000 CFU/mL Urogenital megan 06/16/2025 10:48 PM CDT [facility] Urine URINE SPECIMEN FROM URINARY CONDUIT / Unknown Non-blood Collection / Unknown 06/14/2025 2:00 PM CDT 06/14/2025 2:22 PM CDT Narrative Organism Antibiotic Method Susceptibility Escherichia coli Ampicillin RADHA >=32 ug/mL: Resistant Escherichia coli Ampicillin/ Sulbactam RADHA 16 ug/mL: Intermediate Escherichia coli Piperacillin/Tazobactam RADHA <=4 ug/mL: Susceptible Escherichia coli Cefazolin RADHA 4 ug/mL: Susceptible Escherichia coli Ceftazidime RADHA <=0.5 ug/mL: Susceptible Escherichia coli Ceftriaxone RADHA <=0.25 ug/mL: Susceptible Escherichia coli Cefepime RADHA <=0.12 ug/mL: Susceptible Escherichia coli Gentamicin RADHA <=1 ug/mL: Susceptible Escherichia coli Ciprofloxacin RADHA <=0.06 ug/mL: Susceptible Escherichia coli Levofloxacin RADHA <=0.12 ug/mL: Susceptible Escherichia coli Nitrofurantoin RADHA <=16 ug/mL: Susceptible Escherichia coli Trimethoprim/Sulfamethoxazole RADHA <=1/19 ug/mL: Susceptible Raul Martinez MD LAB - MICRO GENERAL ORDER JEN Final Result [facility]AT[facility] Inf. Diseases Diag. Lab [address] [place] [address], [facility] * (ABNORMAL) Wet prep (06/14/2025 1:43 PM CDT) Trichomonas Absent Absent RADHA 06/14/2025 2:01 PM CDT LABORATORY Yeast Absent Absent RADHA 06/14/2025 2:01 PM CDT LABORATORY Clue Cells Absent Absent RADHA 06/14/2025 2:01 PM CDT [facility] LABORATORY WBCs/high power field 1+(A) None RADHA 06/14/2025 2:01 PM CDT LABORATORY Swab VAGINAL STRUCTURE / Unknown Non-blood Collection / Unknown 06/14/2025 1:43 PM CDT 06/14/2025 1:45 PM CDT Raul Martinez MD LAB - MICRO GENERAL ORDER JEN Final Result LABORATORY [facility] Acute Care Lab [address] Lab (1st floor, no room number) [place] [address], [facility] * Neisseria gonorrhoea PCR (06/14/2025 1:43 PM CDT) Pathologist [facility] Department Neisseria gonorrhoeae Negative Negative 06/15/2025 11:01 AM CDT [facility] Comment:Negative for N. gono rrhoeae rRNA by tester food products mediated amplification. A negative result by tester food products mediated amplification does not preclude the presence of C. trachomatis infection because results are dependent on proper and adequate collection, absence of inhibitors and sufficient rRNA to be detected. Neisseria gonorrhoeae Specimen Source Cervix 06/15/2025 11:01 AM CDT [facility] Swab VAGINAL STRUCTURE / Unknown Non-blood Collection / Unknown 06/14/2025 1:43 PM CDT 06/14/2025 1:45 PM CDT Raul Martinez MD LAB - MICRO GENERAL ORDER JEN Final Result [facility] Inf. Diseases Diag. Lab [address] * Chlamydia trachomatis PCR (06/14/2025 1:43 PM CDT) [facility] Chlamydia trachomatis Negative Negative 06/15/2025 11:01 AM CDT [facility] Comment:A negative result by tester food products mediated amplification does not preclude the presence of C. trachomatis infection because results are dependent on proper and adequate collection, absence of inhibitors and sufficient rRNA to be detected. Chlamydia trachomatis Specimen Source Cervix 06/15/2025 11:01 AM CDT [facility] Swab VAGINAL STRUCTURE / Unknown Non-blood Collection / Unknown 06/14/2025 1:43 PM CDT 06/14/2025 1:45 PM CDT Raul Martinez MD LAB - MICRO GENERAL ORDER JEN Final Result Performing Organization Address [facility] Co de Phone Number [facility] Inf. Diseases Diag. Lab [address] * (ABNORMAL) CBC with platelets and differential (06/14/2025 12:25 PM CDT) [facility] WBC Count 10.5 4.0 - 11.0 10e3/uL 06/14/2025 12:38 PM CDT [facility] LAB[facility]ATORY RBC Count 4.36 3.80 - 5.20 10e6/uL 06/14/2025 12:38 PM CDT [facility] LAB[facility]ATORY Hemoglobin 14.6 11.7 - 15.7 g/dL 06/14/2025 12:38 PM CDT [facility] LAB[facility] Hematocrit 42.0 35.0 - 47.0 % 06/14/2025 12:38 PM CDT [facility] MCV 96 78 - 100 fL 06/14/2025 12:38 PM CDT [facility] LAB[facility] MCH 33.5(H) 26.5 - 33.0 pg 06/14/2025 12:38 PM CDT [facility] MCHC 34.8 31.5 - 36.5 g/dL 06/14/2025 12:38 PM CDT [facility] RDW 12.6 10.0 - 15.0 % 06/14/2025 12:38 PM CDT [facility] Platelet Count 330 150 - 450 10e3/uL 06/14/2025 12:38 PM CDT [facility] % Neutrophils 61 % 06/14/2025 12:38 PM CDT [facility] % Lymphocytes 28 % 06/14/2025 12:38 PM CDT [facility] % Monocytes 8 % 06/14/2025 12:38 PM CDT [facility] % Eosinophils 2 % 06/14/2025 12:38 PM CDT [facility] % Basophils 1 % 06/14/2025 12:38 PM CDT [facility] % Immature Granulocytes 1 % 06/14/2025 12:38 PM CDT [facility] LAB[facility]ATORY NRBCs per 100 WBC 0 <1 /100 025 12:38 PM CDT [facility] LAB[facility]AT[facility] Absolute Neutrophils 6.4 1.6 - 8.3 10e3/uL 06/14/2025 12:38 PM CDT [facility] LAB[facility] Absolute Lymphocytes 2.9 0.8 - 5.3 10e3/uL 06/14/2025 12:38 PM CDT [facility] LABORAT[facility] Absolute Monocytes 0.8 0.0 - 1.3 10e3/uL 06/14/2025 12:38 PM CDT [facility] LABORAT[facility] Absolute Eosinophils 0.2 0.0 - 0.7 10e3/uL 06/14/2025 12:38 PM CDT [facility] LABORATORY Absolute Basophils 0.1 0.0 - 0.2 10e3/uL 06/14/2025 12:38 PM CDT [facility] LAB[facility]AT[facility] Absolute Immature Granulocytes 0.1 <=0.4 10e3/uL 06/14/2025 12:38 PM CDT [facility] LAB[facility]AT[facility] Absolute NRBCs 0.0 10e3/uL 06/14/2025 12:38 PM CDT [facility] LAB[facility]ATORY Blood BLOOD SPECIMEN / Unknown Venipuncture / Unknown 06/14/2025 12:25 PM CDT 06/14/2025 12:32 PM CDT us Raul Martinez MD LAB - BLOOD ORDERABLES Fi nal Result RH LABORATORY [facility] Acute Care Lab [address] Lab (1st floor, no room number) [place] [address], [facility] * (ABNORMAL) Comprehensive Metabolic Panel (Limited Occurrences) (06/14/2025 12:25 PM CDT) Sodium 141 135 - 145 mmol/L 06/14/2025 12:54 PM CDT [facility] LAB[facility]ATORY Potassium 4.0 3.4 - 5.3 mmol/L 06/14/2025 12:54 PM CDT [facility] LAB[facility]AT[facility] Carbon Dioxide (CO2) 25 22 - 29 mmol/L 06/14/2025 12:54 PM CDT [facility] LABORAT[facility] Anion Gap 13 7 - 15 mmol/L 06/14/2025 12:54 PM CDT [facility] LAB[facility] Urea Nitrogen 16.8 6.0 - 20.0 mg/dL 06/14/2025 12:54 PM CDT [facility] LAB[facility] Creatinine 0.85 0.51 - 0.95 mg/dL 06/14/2025 12:54 PM CDT [facility] LAB[facility] GFR Estimate 84 >60 mL/min/1.7 3m2 06/14/2025 12:54 PM CDT [facility] LAB[facility]ATORY Comment:eGFR calculated usin 2020 CKD-EPI equation. Calcium 9.5 8.8 - 10.4 mg/dL 06/14/2025 12:54 PM CDT [facility] LABORATORY Chloride 103 98 - 107 mmol/L 06/14/2025 12:54 PM CDT [facility] LAB[facility]ORY Glucose 108(H) 70 - 99 mg/dL 06/14/2025 12:54 PM CDT [facility] LAB[facility] Alkaline Phosphatase 57 40 - 150 U/L 06/14/2025 12:54 PM CDT [facility] LAB[facility] AST 20 0 - 45 U/L 06/14/2025 12:54 PM CDT [facility] LAB[facility] ALT 21 0 - 50 U/L 06/14/2025 12:54 PM CDT [facility] LAB[facility] Protein Total 7.4 6.4 - 8.3 g/dL 06/14/2025 12:54 PM CDT [facility] Albumin 4.6 3.5 - 5.2 g/dL 06/14/2025 12:54 PM CDT [facility] LAB[facility] Bilirubin Total 0.4 <=1.2 mg/dL 06/14/2025 12:54 PM CDT [facility] LAB[facility]ATORY Blood BLOOD SPECIMEN / Unknown Venipuncture / Unknown 06/14/2025 12:25 PM CDT 06/14/2025 12:32 PM CDT Result [facility] Raul Martinez MD LAB - BLOOD ORDERABLES Fi nal Result [facility] [address] Lab (1st floor, no room number) [place] [address] * Lipase (06/14/2025 12:25 PM CDT) Pathologist [facility] Lipase 25 13 - 60 U/L 06/14/2025 12:54 PM CDT LABORATORY Blood BLOOD SPECIMEN / Unknown Venipuncture / Unknown 06/14/2025 12:25 PM CDT 06/14/2025 12:32 PM CDT Result [facility] Raul Martinez MD LAB - BLOOD ORDERABLES Fi nal Result Performing Organization Address [facility] Co de Phone Number [facility] Lab [address] Lab (1st floor, no room number) [place] [address] * HCG qualitative urine (06/14/2025 12:15 PM CDT) Pathologist [facility] Department hCG Urine Qualitative Negative Negative RADHA 06/14/2025 12:36 PM CDT LABORATORY Comment:This test is for scr eening purposes. Results should be interpreted along with the clinical picture. Confirmation testing is available if warranted by ordering [id number], HCG Quantitative . Urine MID-STREAM URINE SPECIMEN / Unknown Non-blood Collection / Unknown 06/14/2025 12:15 PM CDT 06/14/2025 12:19 PM CDT Result [facility] Raul Martinez MD LAB - URINE ORDERABLES Fi nal Result [facility] Lab [address] Lab (1st floor, no room number) [place] [address], [facility] from Last 3 Months Insurance [place] Care Teams Airfreight Loading Supervisor Relationship Specialty Start Date End Date Fior Leo [address] [place] [address] PCP - General Physician Rubber Grinder 02/12/25
--- OUTSIDE RECORDS SUMMARY | 2025-09-04 20:19 | XMS_ITS | Encounter Summary ---
Author Organization [facility] Address [address], [place] [address] Care Team Providers Care Skin Care Therapist Name Role Phone Fior Leo PA-C Primary Care Provider [phone] Encounter Details Date Type Department Care Team (Late st Contact Info) Description 07/10/2025 Results Follow-Up [facility] [address] [place] [address] Fior Leo PA-C [address] [facility] [place] [address] Social History Tobacco Use Types Packs/Day Years [...] any time in the past 12 m [facility], were you homeless or living in a senior care (including now)? No 07/08/2025 Comments No Sex and Gender Information Value Date Recorded Sex Assigned at Not on file Legal Sex Female 6:31 AM CDT Gender Identity Not on file Sexual Orientation Not on file documented as of this encounter Plan of Treatment Upcoming Encounters Date Type Department Care Team (Late st Contact Info) Description 12/03/2025 11:30 AM REBEAMER Telemedicine [place] [address] [place] [address]. [place] [address] Yadira Amaya MD [address] [place] [address] 02/12/2026 2:00 PM CDT Telemedicine [facility] [address] [place] [address] [address] [place] [address] Rossi Dowd PALynnC [address] [place] [address] 02/12/2026 3:00 PM CDT Telemedicine [facility] [address] [facility] [address] [place] [address] Carmelina Joseph RDN, LD [address] [place] [address] documented as of this encounter Visit Diagnoses Not on filedocumented in this encounter Care Teams Skin Care Therapist Relationship Specialty Start Date End Date Fior Leo, PA-C [address] [place] [address] PCP - General Physician Children'S Minister 05/13/15 documented as of this encounter
--- OUTSIDE RECORDS SUMMARY | 2025-09-04 20:19 | XMS_ITS | Encounter Summary ---
Author Organization [facility] Address [address], [place] [address] Care Team Providers Care Test And Balance Engineer Name Role Phone Fior Leo PA-C Primary Care Provider [phone] Reason for Visit * Reason Comments Refill Encounter Details Date Type Department Care Team (Late st Contact Info) Description 08/13/2025 Refill [facility] 3800 Psychiatry [address] [facility] [place] [address] Yadira Amaya MD [address] [place] [address] Refill Social History Tobacco Use Types Packs/Day Years [...] any time in the past 12 m [facility], were you homeless or living in a assisted (including now)? 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 [address] Yadira Amaya MD [address] [place] [address] 02/12/2026 2:00 PM CDT Telemedicine [facility] [address] [place] [address] [address] [place] [address] Rossi Dowd, PALynnC [address] [place] [address] 02/12/2026 3:00 PM CDT Telemedicine [facility] [address] [place] [address] [address] [place] [address] Carmelina Joseph RDN, LD [address] [place] [address] documented as of this encounter Visit Diagnoses Not on filedocumented in this encounter Care Teams Test And Balance Engineer Relationship Specialty Start Date End Date Fior Leo, NAVEEDC [address] [place] [address] PCP - General Physician [employer] Certified Internetwork Expert 05/13/15 documented as of this encounter
--- OUTSIDE RECORDS SUMMARY | 2025-09-04 20:19 | XMS_ITS | Clinical Summary ---
Author Organization [facility] Address [address] [place] [id number] Care Team Providers Care Money Manager Name Role Phone Fior Leo Primary Care Provider + [phone] Allergies Active Allergy Reactions Criticality Noted Date Comments Ciprofloxacin Shortness Of Breath 10/11/2011 Cyclobenzaprine Shortness Of Breath 10/11/2011 Lamotrigine Rash 10/13/2019 Escitalopram Shortness Of Breath 10/11/2011 Penicillins Hives 10/11/2011 Sulfa (Sulfonamide Antibiotics) Shortness Of Breath,Anaphylaxis High 10/14/2003 PN: LW Reaction: ANAPHYLAXIS Medications DULoxetine (CYMBALTA) 60 mg Delayed-release capsule Take 60 mg by mouth 2 times daily. Active gabapentin (NEURONTIN) 300 mg capsule Take 1-2 capsules by mouth in the morning, 1-2 capsules by mouth at noon, and 4 capsules by mouth at bedtime Active traMADol (ULTRAM) 50 mg tablet Take 50 mg by mouth every 4 hours if needed for Pain (Max 4/day). Active buPROPion (WELLBUTRIN XL) 150 mg Extended-Release tabletIndications:M oderate episode of recurrent major depressive disorder (HC) Take 1 tablet by mouth every morning. 30 tablet 10/17/2019 12:29 PM CROP QUANTITATIVE GENETICIST 9 Active ARIPiprazole (ABILIFY) 10 mg tablet Take 1 Tablet by mouth once daily. 1 Active methocarbamoL (ROBAXIN) 750 mg tabletIndications:A cute low back pain without sciatica, unspecified back pain laterality Take 1 Tablet (750 mg) by mouth 4 times daily. 30 Tablet 2 Active ondansetron (ZOFRAN ODT) 4 mg disintegrating tabletIndications:N ausea Place 2 Tablets (8 mg) on the tongue two times daily. 9 Tablet 2 Active Active Problems Problem Noted Date Diagnosed Date Hyperlipidemia 07/12/2016 Borderline personality disorder 05/14/2015 Cocaine abuse in remission 05/14/2015 Overview (11/23/2021): ICD 10 Learning disorder 04/03/2015 Chemical dependency 12/18/2011 Major depressive disorder 12/18/2011 Fibromyalgia 11/19/2010 Cocaine dependence 10/30/2010 Anxiety disorder 10/30/2010 Tobacco use disorder 01/09/2010 Overview (11/23/2021): Tobacco Abuse Bipolar I disorder, most recent episode depresse d, mild 04/14/2006 Overview (10/14/2019): LW Onset: ; Bipolar I disorder with depression, in remission Migraine 04/20/2003 Overview (11/23/2021): Migraine Without Aura Social History Tobacco Use Types Packs/Day Years Used Date Smoking Tobacco: Every Day Smokeless Tobacco: Never Tobacco Cessation:Ready to Q uit: No; Counseling Given: Yes Comments:7 to 8 cigarettes per day Alcohol Use Standard Drinks/Week Comments Yes 0 (1 standard drink = 0.6 oz pur e alcohol) Social Connections Answer Date Recorded Frequency of Communication with Friends and Fami ly Not on file 11/16/2021 Financial Resource Strain Answer Date R ecorded Difficulty of Paying Living Expenses Not on file 11/16/2021 Difficulty of Paying Living Expenses Not on file 11/16/2021 Comments No Sex and Gender Information Value Date Recorded Sex Assigned at Not on file Legal Sex Female 8:16 AM CROP QUANTITATIVE GENETICIST Gender Identity Not on file Sexual Orientation Not on file Occupation Industry Job Start Date Job End Date Not on file Not on file Not on file Not on file Obstetrics History Last Filed Vital Signs Vital Sign Reading Time Taken Comments Blood Pressure 128/94 07/13/2022 1:03 PM CDT Pulse 90 07/13/2022 1:03 PM CDT Temperature 36.9 C (98.5 F) 07/13/2022 1:03 PM CDT Respiratory Rate 20 07/13/2022 1:03 PM CDT Oxygen Saturation 99% 07/13/2022 1:03 PM CDT Inhaled Oxygen Concentration - - Weight 97.1 kg (214 lb) 07/13/2022 1:03 PM CDT Height 165.1 cm (5' 5) 07/13/2022 1:03 PM CDT Body Mass Index 35.61 07/13/2022 1:03 PM CDT Plan of Treatment Health Maintenance Due Date Last Done Comments Tetanus booster 1987 HIV for age 15-65 1991 Hepatitis C screening for ag e 18-79 1994 Hepatitis B series for 19+ ( 1 of 3 - 19+ 3-dose series) 1995 Pap test for age 21-65 1997 Depression screening for age 12+ 10/13/2020 10/13/20 19 Colonoscopy through age 75 2021 Lipids for age 45-75 2021 Mammogram for age 45-75 2021 BMI (ht and wt on same day) for age 18+ 03/19/2023 03/19/2022 COVID-19 vaccine series (2023- season) 2025 Influenza Vaccine (#1) 2025 RSV vaccine for adults or (1 - 1-dose 75+ series) 2051 Pneumococcal series for age 6-49 Aged Out No longer eligible based on patient's age to complete this topic Insurance [facility] [place] [facility] [place] [employer] Advance Directives * Full Code (Latest Code Status on File) Date Activated Date Inactivated Comments 10/13/2019 8:50 PM 10/17/2019 3:24 PM Care Teams Money Manager Relationship Specialty Start Date End Date Fior Leo PA [address] [place] [address] PCP - General Family Practice 03/23/19
--- OUTSIDE RECORDS SUMMARY | 2025-09-04 20:19 | XMS_ITS | Encounter Summary ---
Author Organization [facility] [employer] Address [address] [address] Care Team Providers Care Cinder Block Mason Name Role Phone Fior Leo PA-C Primary Care Provider [phone]- [phone] Encounter Details Date Type Department Care Team (Late st Contact Info) Description 07/09/2025 E-Visit [facility] [address] [place] [address] [place] [address] Fior Leo PA-C [facility] [place] [address] Social History Tobacco Use Types Packs/Day [...] any time in the past 12 m [facility], were you homeless or living in a [...] st Contact Info) Description 12/03/2025 11:30 AM 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 [address] Yadira Amaya MD [address] [place] [address] 02/12/2026 2:00 PM CDT Telemedicine [facility] [address] [facility] [address] [place] [address] Rossi Dowd PALynnC [address] [place] [address] 02/12/2026 3:00 PM CDT Telemedicine [facility] [address] [facility] [address] [place] [address] Carmelina Joseph RDN, LD [address] [place] [address] documented as of this encounter Visit Diagnoses Not on filedocumented in this encounter Care Teams Cinder Block Mason Relationship Specialty Start Date End Date Fior Leo, PA-C [address] [place] [address] PCP - General Physician Consumer Educator 05/13/15 documented as of this encounter
--- OUTSIDE RECORDS SUMMARY | 2025-09-04 20:19 | XMS_ITS | Encounter Summary ---
Author Organization [facility] Address [address] [address] Care Team Providers Care Airline Lounge Receptionist Name Role Phone Fior Leo PA-C Primary Care Provider [phone]- [phone] Encounter Details Date Type Department Care Team (Late st Contact Info) Description 09/04/2012 Emergency Room External to [facility], Provider BACK PAIN Social History Tobacco Use Types Packs/Day Years [...] as of this encounter Progress Notes * [facility], Provider - 09/04/2012 12:00 AM CDT documented in this encounter Plan of Treatment Upcoming Encounters Date Type Department Care Team (Late st Contact Info) Description 12/03/2025 11:30 AM SCUBA DIVING TEACHER Telemedicine [facility] [address]ry [address] [facility] [place], [place] [address] Yadira Amaya MD [address] [place] [address] 02/12/2026 2:00 PM CDT Telemedicine [facility] [address] [place] [address] [address] [place] [address] Rossi Dowd PALynnC [address] [place] [address] 02/12/2026 3:00 PM CDT Telemedicine [facility] [address] [facility] [address] [place] [address] Carmelina Joseph RDN, LD [address] [place], [place] [address] documented as of this encounter Visit Diagnoses Not on filedocumented in this encounter Additional Health Concerns Infection Onset Date Last Indicated Resolved Time R/O COVID19 05/20/2022 05/20/2022 05/21/2022 1:16 AM CDT R/O COVID19 09/01/2022 09/01/2022 09/02/2022 2:22 AM CDT COVID19 09/01/2022 09/01/2022 09/12/2022 3:17 AM CDT documented as of this encounter Care Teams Airline Lounge Receptionist Relationship Specialty Start Date End Date Fior Leo PAFlaco [address] [place] [address] PCP - General Physician Fly Setter 05/13/15 documented as of this encounter
--- OUTSIDE RECORDS SUMMARY | 2025-09-04 20:19 | XMS_ITS | Encounter Summary ---
Author Organization [facility] Address [address] [address] Care Team Providers Care Steward/Stewardess Bath Name Role Phone Fior Leo PA-C Primary Care Provider [phone]- [phone] Encounter Details Date Type Department Care Team (Late st Contact Info) Description 07/17/2025 E-Visit [facility] [address] [facility] [address] [place] [address] Melvi Ziegler Social History Tobacco Use Types Packs/Day Years [...] any time in the past 12 m [facility], were you homeless or living in [...] st Contact Info) Description 12/03/2025 11:30 AM 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 [place] [address] Yadira Amaya MD [address] [place] [address] 02/12/2026 2:00 PM CDT Telemedicine [facility] [address] [place] [address] [address] [place] [address] Rossi Dowd PALynnC [address] [place] [address] 02/12/2026 3:00 PM CDT Telemedicine [facility] [address] [place] [address] [address] [place] [address] Carmelina Joseph RDN, LD [address] [place], [place] [address] documented as of this encounter Visit Diagnoses Not on filedocumented in this encounter Care Teams Steward/Stewardess Bath Relationship Specialty Start Date End Date Fior Leo PA-C [facility] [address] [place], [place] [id number] PCP - General Physician Assembly Stock Supervisor 05/13/15 documented as of this encounter
--- OUTSIDE RECORDS SUMMARY | 2025-09-04 20:19 | XMS_ITS | Encounter Summary ---
Author Organization [email or web address] Address [address] [address] Care Team Providers Care Network Support Analyst Name Role Phone Fior Leo PA-C Primary Care Provider [phone]- [phone] Encounter Details Date Type Department Care Team (Latest Contact Info) Description 05/14/2015 [facility] Partial Hospitalization Program [address] [place] [address] [facility] SAFETY PLAN Social History Tobacco Use Types Packs/Day Years Used Date Smoking Tobacco: Every Day Alcohol Use Standard Drinks/Week Comments Yes 0 (1 standard drink = 0.6 oz pur e alcohol) On occassion. Comments No Sex and Gender Information Value Date Recorded Sex Assigned at Not on file Legal Sex Female 6:31 AM CDT Gender Identity Not on file Sexual Orientation Not on file documented as of this encounter Plan of Treatment Upcoming Encounters Date Type Department Care Team (Late st Contact Info) Description 12/03/2025 11:30 AM COD CLERK Telemedicine [facility] [address] Psychiatry [address] [facility] [place] [address] Yadira Amaya MD [address] [place] [address] 02/12/2026 2:00 PM CDT Telemedicine [facility] [address] [facility] [address] [place], [place] [address] Rossi Dowd PALynnC [address] [facility] [place] [address] 02/12/2026 3:00 PM CDT Telemedicine [facility] [address] [facility] [address] [place] [address] Carmelina Joseph RDN, LD [address] [place], [place] [address] documented as of this encounter Visit Diagnoses Not on filedocumented in this encounter Additional Health Concerns Infection Onset Date Last Indicated Resolved Time R/O COVID19 05/20/2022 05/20/2022 05/21/2022 1:16 AM CDT R/O COVID19 09/01/2022 09/01/2022 09/02/2022 2:22 AM CDT COVID19 09/01/2022 09/01/2022 09/12/2022 3:17 AM CDT documented as of this encounter Care Teams Network Support Analyst Relationship Specialty Start Date End Date Fior Leo PA-C [address] [place] [id number] PCP - General Physician Director Of Education And Training 05/13/15 documented as of this encounter
[2025-09-04 20:22] VITALS: BP 115/77; PULSE 88; RESP 20; TEMP 36.3; O2SAT 96; BMI 36.7
--- NOTE | 2025-09-04 20:26 | CRLHL7_ITS ---
For Patients: As a result of the Century Cures Act, medical imaging exams and procedure reports are released immediately into your electronic medical record. You may view this report before your referring provider. If you have questions, please contact your health care provider. INDICATION: Fall. TECHNIQUE: Right tibia and fibula 2 view. COMPARISON: None. FINDINGS: Bones: There is an acute comminuted and mildly displaced fracture of the fibular head, with fracture line extending into the proximal metaphysis. There is an acute mildly displaced oblique fracture of the distal tibial diaphysis, with additional nondisplaced fracture line in the distal tibial metaphysis. No dislocation. Joint spaces: Unremarkable. Soft tissues: Soft tissue swelling in the distal calf. IMPRESSION: 1. Acute comminuted mildly displaced fracture of the fibular head and proximal metaphysis. 2. Acute mildly displaced oblique fracture of the distal tibial metadiaphysis. Dictated by Rina Sage MD @ 09/04/2025 8:51:57 PM (Electronically Signed)
--- NOTE | 2025-09-04 20:38 | ED.GENADULT ---
HPI - General Adult General Date Seen: 09/04/25 Chief complaint: Fall/Minor Trauma Stated complaint: fall Time Seen by Provider: 09/04/25 20:28 History of Present Illness HPI narrative: 50-year-old female presenting to the ER today with a right leg injury. She was walking down some steps when she tripped and landed on her right leg. She has bruising and swelling of her right mid/distal tibia where she is having pain. She is not having any pain in her knee, femur, hip. Nor she having any pain or ankle or foot. No associated numbness. She slipped and fell because her dog had urinated on the steps. She hit against a weight in a board at the bottom of her steps. She was not able to bear weight but was able to crawl on her knees up steps and then her boyfriend called the ambulance she was transported here. She received some IV pain meds from EMS and is now resting more comfortably. She has no other injuries. She did not hit her head. No neck pain. No pain in her knee or upper leg. Related Data Home Medications ?Medication ?Instructions ?Recorded ?Confirmed aripiprazole 10 mg tablet 10 mg PO DAILY 04/04/23 12/16/24 bupropion HCl 150 mg 24 hr tablet, 150 mg PO DAILY 04/04/23 12/16/24 extended release duloxetine 60 mg capsule,delayed 60 mg PO BID 04/04/23 12/16/24 release gabapentin 300 mg capsule mg PO 04/04/23 12/16/24 Previous Rx's ?Medication ?Instructions ?Recorded cefdinir 300 mg capsule 600 mg (2 x 300 mg) PO QDAY #20 12/16/24 caps Allergies Allergy/AdvReac Type Severity Reaction Status Date / Time ciprofloxacin (From Cipro) Allergy Verified 12/16/24 08:57 cyclobenzaprine (From Allergy Verified 12/16/24 08:57 Flexeril) escitalopram (From Lexapro) Allergy Verified 12/16/24 08:57 Penicillins Allergy Anaphylaxis Verified 12/16/24 08:57 Sulfa (Sulfonamide Allergy Verified 12/16/24 08:57 Antibiotics) [facility] Medical History (Updated 09/04/25 @ 22:36 by Tres Ortiz MD) Difficulty opening mouth ?R68.89 - Other general symptoms and signs (ICD-10) History of substance use disorder ?Z87.898 - Personal history of other specified conditions (ICD-10) Borderline personality disorder ?F60.3 - Borderline personality disorder (ICD-10) Bipolar disorder ?F31.9 - Bipolar disorder, unspecified (ICD-10) Sleep apnea ?G47.30 - Sleep apnea, unspecified (ICD-10) Obesity (BMI 35.0-39.9 without comorbidity) ?E66.9 - Obesity, unspecified (ICD-10) Surgical History (Updated 09/04/25 @ 22:05 by Tutu Valle MD) History of section ?Z98.891 - History of uterine scar from previous surgery (ICD-10) History of tubal ligation ?Z98.51 - Tubal ligation status (ICD-10) Social History (Updated 09/04/25 @ 22:07 by Tutu Valle MD) Narrative: She lives in a 2nd story apartment with her fiance, Len pulido. She designates her mother, Ashely Herrera of [employer], and her fiance as healthcare power of claim attorney. Code status is full. She smokes a half pack of cigarettes a day. She drinks alcohol regularly but not every day. She had 3 alcoholic beverages today prior to her fall. She has daily cannabis use. Smoking Status: Smoker, status unknown How often do you have a drink containing alcohol: 2-3 times a week How many standard drinks containing alcohol do you have on a typical day: 3 or 4 How often do you have six or more drinks on one occasion: Never AUDIT-C Alcohol total score: 4 Exam Narrative: Exam Narrative: Constitutional: Appears well-developed and well-nourished. Alert. Conversant. Non toxic. HENT: Head: Atraumatic. Nose: Nose normal. Mouth/Throat: Oral mucosa is clear and moist. no trismus. Pharynx normal. Tonsils symmetric. No tonsillar enlargement, erythema, or exudate. Eyes: Conjunctivae normal. EOM normal. Pupils equal, round, and reactive to light. No scleral icterus. Neck: Normal range of motion. Neck supple. No tracheal deviation present. Cardiovascular: Normal rate, regular rhythm. No gallop. No friction rub. No murmur heard. Symmetric radial artery and strong DP/PT pulses . Normal distal cap refill. Pulmonary/Chest: Effort normal. No stridor. No respiratory distress. No wheezes. No rales. No rhonchi . No ribcage tenderness. Abdominal: Soft. Nontender Musculoskeletal: RUE: Normal range of motion. No tenderness. No deformity LUE: Normal range of motion. No tenderness. No deformity RLE: No tenderness of her hip, femoral shaft, quad, hamstring. Knee and proximal tibia are nontender. Mild tenderness over the proximal fibula. She is quite tender with bruising and swelling and suggestion of mild deformity over the distal 1/3 of the tibia/fibula shaft. No tenderness over the distal ankle medial and lateral malleoli,. Foot is nontender. Calcaneus, midfoot, forefoot nontender. Normal distal cap refill. Strong DP pulse. Range of motion in her knee and ankle are limited by her tibia pain. LLE: Normal range of motion. No edema. No tenderness. No deformity Neurological: Alert and oriented to person, place, and time. Normal strength. CN II-VII intact. No sensory deficit. GCS eye subscore is 4. GCS verbal subscore is 5. GCS motor subscore is 6. Normal coordination Skin: Skin is warm and dry. No rash noted. No pallor. Normal capillary refill. Psychiatric: Normal mood. Normal affect. Const: Vital Signs, click to edit/add: Vital Signs - 24 hr 09/04/25 20:22 Temperature 97.4 F L Pulse Rate [Pulse Oximeter] 88 Respiratory Rate 20 Blood Pressure [Ri ght Upper Arm] 115/77 Pulse Oximetry 96 Oxygen Delivery Me thod Room Air Course Course ED Course: Procedure: Short-leg splint placement Indication tibial shaft fracture/proximal fibula fracture Verbal consent patient Using 3 in fiberglass splinting we created a short-leg splint with a posterior mold any medial/lateral stirrup. Splint was placed by myself with assistance of 2 nurses. It was molded to fit the patient's body and care was taken to avoid excess pressure or any sharp edges rubbing. Patient remains neurovascularly intact and comfortable after splint placement. Vital Signs Vital signs: Initial Vital Signs Temperature 97.4 F L 09/04/25 20:22 Temperature Source Temporal Artery Scan 09/04/25 20:22 Pulse Rate 88 09/04/25 20:22 Pulse Rhythm Regular 09/04/25 20:22 Respiratory Rate 20 09/04/25 20:22 Blood Pressure 115/77 09/04/25 20:22 Blood Pressure Mean 89 09/04/25 20:22 Blood Pressure Position Supine 09/04/25 20:22 Pulse Oximetry 96 09/04/25 20:22 Oxygen Delivery Method Room Air 09/04/25 20:22 Vital Signs Temperature 97.4 F L 09/04/25 20:22 Pulse Rate 88 09/04/25 20:22 Respiratory Rate 20 09/04/25 20:22 Blood Pressure 115/77 09/04/25 20:22 Pulse Oximetry 96 09/04/25 20:22 Oxygen Delivery Method Room Air 09/04/25 20:22 Temperature 97.4 F L 09/04/25 20:22 Pulse Rate 88 09/04/25 20:22 Respiratory Rate 20 09/04/25 20:22 Blood Pressure 115/77 09/04/25 20:22 Pulse Oximetry 96 09/04/25 20:22 Oxygen Delivery Method Room Air 09/04/25 20:22 Medications Administered Medications: Generic Name Dose Route Start Last Admin Trade Name Freq PRN Reason Stop Dose Admin Hydromorphone HCl 0.5 mg 09/04/25 21:17 09/04/25 21:50 Hydromorphone 0.5 Mg/0.5 Ml Inj IVP 0.5 mg Q1H PRN Administration Pain Discontinued Medications Generic Name Dose Route Start Last Admin Trade Name Freq PRN Reason Stop Dose Admin Ondansetron HCl 4 mg 09/04/25 21:17 09/04/25 21:50 Ondansetron 2 Mg/Ml Inj IVP 09/04/25 21:18 4 mg ONCE ONE Administration Medical Decision Making [facility] Narrative Medical decision making narrative: Very pleasant 50-year-old female brought to the ER today by EMS with right lower leg pain after she tripped and fell on her steps when she was taking her dog out for a to go to the bathroom. She injured her right lower leg but fortunately no other injuries from the fall. She did not hit her head or injure her neck. No torso injury. No injury to her left leg or upper extremities. X-rays of her left tibia and fibula confirm a fracture obliquely through the shaft of the tibia at the junction of the middle 3rd and distal 3rd. This is mildly displaced. Also a very subtle proximal fibular fracture. Fortunately she is neurovascularly intact. This is a closed fracture. No evidence for compartment syndrome Discussed with our orthopedic team. Plan will be to admit for pain control and neurologic monitoring overnight. ORIF in the morning. Discussed with our hospitalist, Dr. Valle who accepts. Laboratory workup shows normal CBC. Negative test. Normal BMP. Alcohol level is 0.06, which is consistent with the patient's report of having a couple of beers and a shot of alcohol prior to falling tonight. She is not having any signs of alcohol withdrawal at this time. Lab Data Labs: Lab Results 09/04/25 Range/Units 21:25 WBC 10.08 (4.50-11.00) K/uL RBC 4.02 (4.00-5.20) m/uL Hgb 13.1 (12.0-16.0) gm/dL Hct 38.9 (33.0-51.0) % MCV 97 (80-100) fL MCH 33 (26-34) pg MCHC 34 (32-36) gm/dL RDW Coeff of [place] 12.3 (11.5-15.5) % Plt Count 270 (140-440) K/uL Neut % (Auto) 66.9 (42.0-72.0) % Lymph % (Auto) 22.9 (20-44) % [place] % (Auto) 7.6 (0.0-11.0) % Eos % (Auto) 1.3 (0.0-7.0) % Baso % (Auto) 0.4 (0.0-3.0) % Neut # (Auto) 6.74 (1.7-7.0) K/uL Lymph # (Auto) 2.31 (0.90-2.90) K/uL [place] # (Auto) 0.80 (0.00-0.90) K/UL Eos # (Auto) 0.13 (0.00-0.50) K/uL Baso # (Auto) 0.04 (0.00-0.30) K/uL Abs Immat Gran (auto) 0.09 (0.00-0.30) K/uL Imm/Tot Granulo (auto) 0.9 % Sodium 135 (135-149) mmol/L Potassium 3.9 (3.6-5.1) mmol/L Chloride 100 (96-114) mmol/L Carbon Dioxide 28 (20-32) mmol/L Anion Gap 7 (7-15) mEq/L BUN 17 (5-24) mg/dL Creatinine 1.0 (0.5-1.5) mg/dL Estimated Creat Clear 58.76 Estimated GFR 69 ml/min Glucose 103 (60-115) mg/dL Calcium 9.3 (8.4-10.6) mg/dL HCG, Qual Negative (Negative) Ethyl Alcohol 0.06 H (0.01-0.03) % Discharge Plan Discharge Clinical Impression: Closed tibia fracture Patient Disposition: Admitted As Observation Discharge Location: [facility] Activity Level: No Restrictions Discharge Diet: Regular
[2025-09-04 21:36] LABS: Hematocrit* 38.9 % (33.0-51.0); Hemoglobin* 13.1 gm/dL (12.0-16.0); Immature Granulocytes Abs Auto 0.09 K/uL (0.00-0.30); Immature Granulocytes Pct Auto 0.9 %; Lymphocytes Absolute Auto 2.31 K/uL (0.90-2.90); Mean Corpuscular HGB Conc 34 gm/dL (32-36); Mean Corpuscular Hemoglobin 33 pg (26-34); Mean Corpuscular Volume 97 fL (80-100); RDW Coefficient of Variation % 12.3 % (11.5-15.5); Red Blood Count* 4.02 m/uL (4.00-5.20); White Blood Count* 10.08 K/uL (4.50-11.00)
[2025-09-04 21:49] LABS: Slide Review Reflex No
[2025-09-04] MEDS: ONDANSETRON 2 MG/ML inj 4 MG IVP (21:50)
[2025-09-04 21:54] LABS: Chloride* 100 mmol/L (96-114); Sodium* 135 mmol/L (135-149)
--- NOTE | 2025-09-04 21:54 | PM.IMHP1 ---
Assessment and Plan Assessment and plan (1) Right tibial fracture: Problem comment: Orthopedic consultation. Plan surgery tomorrow Status: Acute (2) Right fibular fracture: Status: Acute (3) Difficulty opening mouth: Problem comment: She has a chronically restricted jaw mobility limiting mouth opening. Anesthesia to assess and manage Status: Acute (4) Sleep apnea: Problem comment: She has talk to her primary care physician about a sleep study. Still pending. She acknowledges a problem with snoring. Status: Suspected (5) Obesity (BMI 35.0-39.9 without comorbidity): Status: Acute (6) Tobacco abuse: Status: Acute Plan 50-year-old female admitted to the hospital with a right tib-fib fracture. Anticipate surgery tomorrow. Anesthesia to assess potential airway problems. No other preoperative concerns for surgery. Total Time Spent Total Time Spent: Total time spent today is 65 minutes in reviewing outside records, coordination of care, discussion with patient and other providers about management her fracture and surgery Hospitalist- H&P: HPI History of Present Illness Date Seen: 09/04/25 Chief complaint: fall Narrative: Peter Elam is a 50 year old female admitted to the hospital after a fall at home with a right leg injury. She was going down the stairs to go out of her apartment when she slipped on the landing were her dog had urinated. She fell landing on her right leg and was unable to walk. Prior to this she was feeling fine today. She has not had any recent illness. She reports that she had 3 alcoholic beverages prior to her fall today. She does not drink alcohol every day. Review of Systems Narrative: Review of systems is unremarkable except as noted above. [facility] Medical History (Updated 09/04/25 @ 22:14 by Tutu Valle MD) Difficulty opening mouth ?R68.89 - Other general symptoms and signs (ICD-10) History of substance use disorder ?Z87.898 - Personal history of other specified conditions (ICD-10) Borderline personality disorder ?F60.3 - Borderline personality disorder (ICD-10) Bipolar disorder ?F31.9 - Bipolar disorder, unspecified (ICD-10) Sleep apnea ?G47.30 - Sleep apnea, unspecified (ICD-10) Obesity (BMI 35.0-39.9 without comorbidity) ?E66.9 - Obesity, unspecified (ICD-10) Surgical History (Updated 09/04/25 @ 22:05 by Tutu Valle MD) History of section ?Z98.891 - History of uterine scar from previous surgery (ICD-10) History of tubal ligation ?Z98.51 - Tubal ligation status (ICD-10) Social History (Updated 09/04/25 @ 22:07 by Tutu Valle MD) Narrative: She lives in a 2nd story apartment with her fiance, Len pulido. She designates her mother, Ashely Herrera of [place], and her fiance as healthcare power of direct support worker. Code status is full. She smokes a half pack of cigarettes a day. She drinks alcohol regularly but not every day. She had 3 alcoholic beverages today prior to her fall. She has daily cannabis use. Smoking Status: Smoker, status unknown How often do you have a drink containing alcohol: 2-3 times a week How many standard drinks containing alcohol do you have on a typical day: 3 or 4 How often do you have six or more drinks on one occasion: Never AUDIT-C Alcohol total score: 4 Meds Home Medications and Allergies Home Medications ?Medication ?Instructions ?Recorded ?Confirmed ?Type aripiprazole 10 mg tablet 10 mg PO DAILY 04/04/23 12/16/24 History bupropion HCl 150 mg 24 hr tablet, 150 mg PO DAILY 04/04/23 12/16/24 History extended release duloxetine 60 mg capsule,delayed 60 mg PO BID 04/04/23 12/16/24 History release gabapentin 300 mg capsule mg PO 04/04/23 12/16/24 History cefdinir 300 mg capsule 600 mg (2 x 300 mg) PO QDAY #20 12/16/24 12/16/24 Rx caps Allergies Allergy/AdvReac Type Severity Reaction Status Date / Time ciprofloxacin (From Cipro) Allergy Verified 12/16/24 08:57 cyclobenzaprine (From Allergy Verified 12/16/24 08:57 Flexeril) escitalopram (From Lexapro) Allergy Verified 12/16/24 08:57 Penicillins Allergy Anaphylaxis Verified 12/16/24 08:57 Sulfa (Sulfonamide Allergy Verified 12/16/24 08:57 Antibiotics) Exam Narrative: Exam Narrative: She is mildly sedated from pain medication. She gives her own history with fairly good detail. Head is without apparent trauma. Eyes normal. Oropharynx with restricted jaw mobility and limited mouth opening which is chronic. Not painful. Oropharynx with dry mucous membranes and no other obvious mucosal abnormality. Neck is supple without mass or adenopathy. Respirations are clear to auscultation without wheezing rales rhonchi. Cardiovascular: S1, S2, regular rate and rhythm. Abdomen: Bowel sounds active. Abdomen is soft without tenderness or mass. Fingernails with artificial nails. Upper extremities with good capillary refill good pulses. She moves upper extremities normally. Lower extremities notable for moderate bruising over her mid to distal 1/3 of the right leg consistent with the location of her tibial fracture. No apparent break in the skin. Right foot is mildly cool to touch and sluggish capillary refill. She does have intact dorsalis pedis pulse on the right and intact sensation in her toes and feet. Const: Vital Signs, click to edit/add: Vital Signs - 24 hr 09/04/25 20:22 Temperature 97.4 F L Pulse Rate [Pulse Oximeter] 88 Respiratory Rate 20 Blood Pressure [Ri ght Upper Arm] 115/77 Pulse Oximetry 96 Oxygen Delivery Me thod Room Air Documenting provider has reviewed patient's vital signs: yes Hospitalist - H&P: Result Labs Labs: Short CBC 09/04/25 Range/Units 21:25 WBC 10.08 (4.50-11.00) K/uL Hgb 13.1 (12.0-16.0) gm/dL Hct 38.9 (33.0-51.0) % Plt Count 270 (140-440) K/uL Imaging Right tib-fib: Radiologist's impression: INDICATION: Fall. TECHNIQUE: Right tibia and fibula 2 view. COMPARISON: None. FINDINGS: Bones: There is an acute comminuted and mildly displaced fracture of the fibular head, with fracture line extending into the proximal metaphysis. There is an acute mildly displaced oblique fracture of the distal tibial diaphysis, with additional nondisplaced fracture line in the distal tibial metaphysis. No dislocation. Joint spaces: Unremarkable. Soft tissues: Soft tissue swelling in the distal calf. IMPRESSION: 1. Acute comminuted mildly displaced fracture of the fibular head and proximal metaphysis. 2. Acute mildly displaced oblique fracture of the distal tibial metadiaphysis.
[2025-09-04 21:55] LABS: Potassium* 3.9 mmol/L (3.6-5.1)
[2025-09-04 21:57] LABS: Anion Gap 7 mEq/L (7-15); Blood Urea Nitrogen* 17 mg/dL (5-24); Carbon Dioxide* 28 mmol/L (20-32); Creatinine* 1.0 mg/dL (0.5-1.5); Est. Creatinine Clearance* 58.76; Estimated Glomerular Filt Rate 69 ml/min
[2025-09-04 21:58] LABS: Calcium* 9.3 mg/dL (8.4-10.6); Ethanol* 0.06 % (0.01-0.03); Glucose* 103 mg/dL (60-115)
[2025-09-04 22:09] LABS: HCG Qualitative Serum* Negative (Negative)
[2025-09-04 23:34] VITALS: BP 129/81; PULSE 79; RESP 18; O2SAT 96; BMI 40.3; BMI 40.4
[2025-09-05] VITALS (18 sets, daily range): BP systolic 106–142; BP diastolic 56–95; PULSE 73–87; RESP 14–16; TEMP 36.1–37.3; O2SAT 88–99
[2025-09-05] MEDS: LACTATED RINGERS 500 ML 500 ML 125 ML IV ×3 (01:25→12:23)
[2025-09-05 04:00] LABS: Appearance Urine Cloudy (Clear)
[2025-09-05 04:09] LABS: Cannabinoid Screen Urine POSITIVE (Negative); Methamphetamines Screen Urine Negative (Negative); Tricyclic Antidepressant Urine Negative (Negative)
--- NOTE | 2025-09-05 07:23 | PC.NURSE ---
shift note: Pt. AOx4. VSS. Pt. reported pain; pain meds given--see EMAR. Purewick in place w/ output. Pt. R LE splint in place w/ active ice applied. LRs running. Pt. able to make needs known; is pleasant.
[2025-09-05] MEDS: GABAPENTIN 600 MG TABLET PO (09:10)
[2025-09-05] MEDS: DULOXETINE 30 MG CAPSULE DR 60 MG PO ×2 (09:10→23:32)
[2025-09-05] MEDS: SODIUM CHLORIDE 0.9 % (FLUSH) 10 ML SYRINGE 5 ML IVF (09:11)
--- NOTE | 2025-09-05 12:07 | P.IMPN_ITS ---
Assessment and Plan Assessment and plan (1) Fracture of right tibia and fibula: Problem comment: Right - fell going down the stairs Orthopedic consultation - ORIF 09/05 NPO IVF pain management Status: Acute (2) Chronic anxiety: Problem comment: -continue home med regimen Status: Acute (3) Difficulty opening mouth: Problem comment: She has a chronically restricted jaw mobility limiting mouth opening. Anesthesia to assess and manage Status: Acute (4) Sleep apnea: Problem comment: She has talk to her primary care physician about a sleep study. Still pending. She acknowledges a problem with snoring. Status: Suspected (5) Obesity (BMI 35.0-39.9 without comorbidity): Status: Acute (6) Tobacco abuse: Status: Acute Subjective Date Seen: 09/05/25 Interval history: Daily Progress Note - Hospital #: 2 DOI 09/04, fall on stairs CC: Right Tib/Fib Fx 24 HOUR UPDATE: Admitted last night. resting with leg in splint and elevated. Pain adequately managed. Objective: tired appearing. obese. Vitals: see above Lungs: Clear. Cardiac: S1S2. right LE - splinted, elevated. toes exposed, warm/pink and moving without pain -No concern for compartment syndrome Disposition/Potential discharge - After surgery Today I spent 50minutes seeing the patient, reviewing Expanse and EPIC notes/diagnostics, discussing the care plan with our care time that includes social work, PT/OT, pharmacy, RT, penitentiary and documenting my impressions and plan in the medical record. Exam Const: Vital Signs, click to edit/add: Vital Signs - 24 hr 09/04/25 20:22 09/04/25 23:34 09/05/25 03:14 Temperature 97.4 F L Pulse Rate [Pulse Oximeter] 88 79 81 Respiratory Rate 20 18 16 Blood Pressure [Le ft Arm] 129/81 124/76 Blood Pressure [Ri ght Upper Arm] 115/77 Pulse Oximetry 96 96 96 Oxygen Delivery Me thod Room Air Room Air Room Air 09/05/25 07:00 09/05/25 11:20 Temperature 97.4 F L 97.0 F L Pulse Rate [Pulse Oximeter] 76 75 Respiratory Rate 16 16 Blood Pressure [Le ft Arm] 119/56 L 115/75 Blood Pressure [Ri ght Upper Arm] Pulse Oximetry 94 97 Oxygen Delivery Me thod Room Air Room Air Labs Labs: Laboratory Results - last 24 hr 09/04/25 09/05/25 21:25 03:45 WBC 10.08 RBC 4.02 Hgb 13.1 Hct 38.9 MCV 97 MCH 33 MCHC 34 RDW Coeff of [place] 12.3 Plt Count 270 Neut % (Auto) 66.9 Lymph % (Auto) 22.9 [place] % (Auto) 7.6 Eos % (Auto) 1.3 Baso % (Auto) 0.4 Neut # (Auto) 6.74 Lymph # (Auto) 2.31 [place] # (Auto) 0.80 Eos # (Auto) 0.13 Baso # (Auto) 0.04 Abs Immat Gran (auto) 0.09 Imm/Tot Granulo (auto) 0.9 Sodium 135 Potassium 3.9 Chloride 100 Carbon Dioxide 28 Anion Gap 7 BUN 17 Creatinine 1.0 Estimated Creat Clear 58.76 Estimated GFR 69 Glucose 103 Calcium 9.3 HCG, Qual Negative Urine Color Yellow Urine Appearance Cloudy A Urine pH 6.0 Ur Specific [place] 1.020 Urine Protein Trace A Urine Glucose (UA) Negative Urine Ketones Negative Urine Blood Negative Urine Nitrite Negative Urine Bilirubin Negative Urine Urobilinogen 0.2 Ur Leukocyte Esterase Negative Urine RBC 0-2 Urine WBC 2-5 Ur Squamous Epith Cells Few Urine Bacteria Few A Urine Mucus Few A Urine Opiates Screen POSITIVE A Ur Oxycodone Screen Negative Urine Methadone Screen Negative Ur Barbiturates Screen Negative U Tricyclic Antidepress Negative Ur Phencyclidine Scrn Negative Ur Amphetamines Screen Negative U Methamphetamines Scrn Negative U Benzodiazepines Scrn Negative Urine Cocaine Screen Negative U Marijuana (THC) Screen POSITIVE A Ur Drug Screen Comment See Note Ethyl Alcohol 0.06 H
--- NOTE | 2025-09-05 13:21 | PM.ORCN ---
History of Present Illness HPI Time Seen by Provider: 07:45 Date Seen: 09/05/25 Chief complaint: Right Tibia Fracture Narrative: Peter is a 50-year-old female who was admitted to the hospital yesterday evening for treatment of her right tibia fracture. Injury occurred as she was going down the stairs of her apartment and slipped, landing on her right leg. Following the injury she developed right lower leg pain and was unable to walk. She was subsequent seen in the emergency department where x-rays revealed fractures of the right tibial shaft and proximal fibula. This morning, she reports right lower leg pain which is currently adequately controlled. She denies any other injuries. [facility] Medical History (Updated 09/05/25 @ 12:22 by Nadia Samuel MD) Tobacco use disorder (01/09/10) ?F17.200 - Nicotine dependence, unspecified, uncomplicated (ICD-10) Borderline personality disorder (05/14/15) ?F60.3 - Borderline personality disorder (ICD-10) Vitamin D deficiency (02/25/23) ?E55.9 - Vitamin D deficiency, unspecified (ICD-10) Myalgia (04/01/08) ?M79.10 - Myalgia, unspecified site (ICD-10) Migraine (04/20/03) ?G43.909 - Migraine, unspecified, not intractable, without status migrainosus (ICD-10) Major depressive disorder (12/18/11) ?F32.9 - Major depressive disorder, single episode, unspecified (ICD-10) Learning disorder (04/03/15) ?F81.9 - Developmental disorder of scholastic skills, unspecified (ICD-10) Hyperlipidemia (07/12/16) ?E78.5 - Hyperlipidemia, unspecified (ICD-10) Fibromyalgia (07/06/12) ?M79.7 - Fibromyalgia (ICD-10) Cocaine dependence (10/30/10) ?F14.20 - Cocaine dependence, uncomplicated (ICD-10) Cocaine abuse in remission (05/14/15) ?F14.11 - Cocaine abuse, in remission (ICD-10) Chemical dependency (12/18/11) ?F19.20 - Other psychoactive substance dependence, uncomplicated (ICD-10) Bipolar I disorder, most recent episode depressed, mild (04/14/06) ?F31.31 - Bipolar disorder, current episode depressed, mild (ICD-10) Backache (01/09/10) ?M54.9 - Dorsalgia, unspecified (ICD-10) Anxiety (07/06/12) ?F41.9 - Anxiety disorder, unspecified (ICD-10) Difficulty opening mouth ?R68.89 - Other general symptoms and signs (ICD-10) History of substance use disorder ?Z87.898 - Personal history of other specified conditions (ICD-10) Borderline personality disorder ?F60.3 - Borderline personality disorder (ICD-10) Bipolar disorder ?F31.9 - Bipolar disorder, unspecified (ICD-10) Sleep apnea ?G47.30 - Sleep apnea, unspecified (ICD-10) Obesity (BMI 35.0-39.9 without comorbidity) ?E66.9 - Obesity, unspecified (ICD-10) Surgical History (Updated 09/04/25 @ 22:05 by Tutu Valle MD) History of section ?Z98.891 - History of uterine scar from previous surgery (ICD-10) History of tubal ligation ?Z98.51 - Tubal ligation status (ICD-10) Social History (Updated 09/04/25 @ 22:07 by Tutu Valle MD) Narrative: She lives in a 2nd story apartment with her fiance, Len pulido. She designates her mother, Ashely Herrera of [place], and her fiance as healthcare power of litigation attorney. Code status is full. She smokes a half pack of cigarettes a day. She drinks alcohol regularly but not every day. She had 3 alcoholic beverages today prior to her fall. She has daily cannabis use. What is your current living situation?: I presently have a place to live Problems where you live: no known problems In the past 12 months, utilities in danger of being shut off: no In past 12 months, lack of transportation kept you from medical appts, meetings, work, or getting things needed for daily living: no In the past 12 mos, have been you worried that your food would run out before you had money to buy more?: never true In the past 12 mos, the food you bought just didn't last and you didn't have money to buy more?: never true Highest level of school completed/degree received: 10th grade Smoking Status: Current every day smoker What tobacco products do you use: cigarettes Smoking packs per day: 0.5 Smoking cigarettes per day: 10.0 Years smoked: 33 Smoking pack-years: 16.50 How often do you have a drink containing alcohol: 2-3 times a week Alcohol type: beer and hard liquor How many standard drinks containing alcohol do you have on a typical day: 1 or 2 How often do you have six or more drinks on one occasion: Never AUDIT-C Alcohol total score: 3 How often does anyone, including family, friends and others, physically hurt you: never How often does anyone, including family, friends and others, insult or talk down to you: never How often does anyone, including family, friends and others, threaten you with harm: never How often does anyone, including family, friends and others, scream or curse at you: never service: No Meds Home Medications and Allergies Home Medications ?Medication ?Instructions ?Recorded ?Confirmed ?Type aripiprazole 10 mg tablet 10 mg PO DAILY 04/04/23 09/05/25 History duloxetine 60 mg capsule,delayed 60 mg PO BID 04/04/23 09/05/25 History release gabapentin 300 mg capsule 600 - 1,200 mg PO TID 04/04/23 09/05/25 History bupropion HCl 300 mg 24 hr tablet, 300 mg PO DAILY 09/05/25 09/05/25 History extended release cholecalciferol (vitamin D3) 25 25 mcg PO DAILY 09/05/25 09/05/25 History mcg (1,000 unit) capsule (Vitamin D3) multivitamin-ferrous 1 tab PO DAILY 09/05/25 09/05/25 History fumarate-folic acid 18 mg-400 mcg tablet (Centrum Women) propranolol 10 mg tablet 20 - 30 mg PO BID PRN anxiety 09/05/25 09/05/25 History Allergies Allergy/AdvReac Type Severity Reaction Status Date / Time ciprofloxacin (From Cipro) Allergy Verified 12/16/24 08:57 cyclobenzaprine (From Allergy Verified 12/16/24 08:57 Flexeril) escitalopram (From Lexapro) Allergy Verified 12/16/24 08:57 Penicillins Allergy Anaphylaxis Verified 12/16/24 08:57 Sulfa (Sulfonamide Allergy Verified 12/16/24 08:57 Antibiotics) Ortho Exam Narrative Exam Narrative: General: Alert and oriented no apparent distress. Musculoskeletal: Lower extremity was examined in the splint. Calf compartments were soft and compressible with minimal tenderness. She was able to actively flex and extend her toes without significant discomfort. Sensation was intact to light touch dorsal plantar foot. Toes were warm and well perfused. Const Vital Signs, click to edit/add: Vital Signs - 24 hr 09/04/25 20:22 09/04/25 23:34 09/05/25 03:14 Temperature 97.4 F L Pulse Rate [Pulse Oximeter] 88 79 81 Respiratory Rate 20 18 16 Blood Pressure [Left Arm] 129/81 124/76 Blood Pressure [Right Upper Arm] 115/77 Pulse Oximetry 96 96 96 Oxygen Delivery Method Room Air Room Air Room Air 09/05/25 07:00 09/05/25 11:20 Temperature 97.4 F L 97.0 F L Pulse Rate [Pulse Oximeter] 76 75 Respiratory Rate 16 16 Blood Pressure [Left Arm] 119/56 L 115/75 Blood Pressure [Right Upper Arm] Pulse Oximetry 94 97 Oxygen Delivery Method Room Air Room Air Results Labs Labs: Laboratory Results - last 48 hr 09/04/25 09/05/25 21:25 03:45 WBC 10.08 RBC 4.02 Hgb 13.1 Hct 38.9 MCV 97 MCH 33 MCHC 34 RDW Coeff of [place] 12.3 Plt Count 270 Neut % (Auto) 66.9 Lymph % (Auto) 22.9 [place] % (Auto) 7.6 Eos % (Auto) 1.3 Baso % (Auto) 0.4 Neut # (Auto) 6.74 Lymph # (Auto) 2.31 [place] # (Auto) 0.80 Eos # (Auto) 0.13 Baso # (Auto) 0.04 Abs Immat Gran (auto) 0.09 Imm/Tot Granulo (auto) 0.9 Sodium 135 Potassium 3.9 Chloride 100 Carbon Dioxide 28 Anion Gap 7 BUN 17 Creatinine 1.0 Estimated Creat Clear 58.76 Estimated GFR 69 Glucose 103 Calcium 9.3 HCG, Qual Negative Urine Color Yellow Urine Appearance Cloudy A Urine pH 6.0 Ur Specific [place] 1.020 Urine Protein Trace A Urine Glucose (UA) Negative Urine Ketones Negative Urine Blood Negative Urine Nitrite Negative Urine Bilirubin Negative Urine Urobilinogen 0.2 Ur Leukocyte Esterase Negative Urine RBC 0-2 Urine WBC 2-5 Ur Squamous Epith Cells Few Urine Bacteria Few A Urine Mucus Few A Urine Opiates Screen POSITIVE A Ur Oxycodone Screen Negative Urine Methadone Screen Negative Ur Barbiturates Screen Negative U Tricyclic Antidepress Negative Ur Phencyclidine Scrn Negative Ur Amphetamines Screen Negative U Methamphetamines Scrn Negative U Benzodiazepines Scrn Negative Urine Cocaine Screen Negative U Marijuana (THC) Screen POSITIVE A Ur Drug Screen Comment See Note Ethyl Alcohol 0.06 H Diagnostic results Additional Comments: AP and lateral right tibia and fibula x-rays performed 09/04/2025 were reviewed. These demonstrate a mildly displaced spiral fracture of the distal tibial diaphysis and a mildly displaced fracture of the proximal fibula. Assessment and Plan Assessment and plan (1) Fracture of right tibia and fibula: Problem comment: Right - fell going down the stairs Orthopedic consultation - ORIF 09/05 NPO IVF pain management Status: Acute Total time spent: Total time spent is greater than 50% in coordination of care (as documented) at patient's floor/unit and/or counseling patient: (2) Chronic anxiety: Problem comment: -continue home med regimen Status: Acute Total time spent: Total time spent is greater than 50% in coordination of care (as documented) at patient's floor/unit and/or counseling patient: (3) Difficulty opening mouth: Problem comment: She has a chronically restricted jaw mobility limiting mouth opening. Anesthesia to assess and manage Status: Acute Total time spent: Total time spent is greater than 50% in coordination of care (as documented) at patient's floor/unit and/or counseling patient: (4) Sleep apnea: Problem comment: She has talk to her primary care physician about a sleep study. Still pending. She acknowledges a problem with snoring. Status: Suspected Total time spent: Total time spent is greater than 50% in coordination of care (as documented) at patient's floor/unit and/or counseling patient: (5) Obesity (BMI 35.0-39.9 without comorbidity): Status: Acute Total time spent: Total time spent is greater than 50% in coordination of care (as documented) at patient's floor/unit and/or counseling patient: (6) Tobacco abuse: Status: Acute Total time spent: Total time spent is greater than 50% in coordination of care (as documented) at patient's floor/unit and/or counseling patient: Plan Patient has a displaced fracture of the right tibia and minimally displaced fracture of the right proximal fibula. Risks and benefits of operative treatment and alternatives to surgery were discussed with patient. Recommendation was subsequently made for surgical intervention consisting of a right tibia internal fixation with an intramedullary nail to allow for early mobilization and advancement of weight-bearing, decreased pain, and healing of the fracture. Risks of surgery to include, but not limited to, infection, neurovascular injury, malunion, nonunion, deep vein thrombosis, pulmonary embolism, heart attack, stroke, and even were discussed with patient. She was also counseled on the increased risk of nonunion associated with smoking and was strongly encouraged to discontinue smoking. After discussion, they were in agreement with plan to proceed with surgery. All of patient's questions were answered and informed consent was obtained. Patient has been admitted to the hospitalist for perioperative medical management. She has been medically optimized and cleared for the planned surgical procedure. She is to remain NPO for anticipated surgery this afternoon.
--- NOTE | 2025-09-05 15:00 | CRLHL7_ITS ---
For Patients: As a result of the Cures Act, medical imaging exams and procedure reports are released immediately into your electronic medical record. You may view this report before your referring provider. If you have questions, please contact your health care provider. Indication: Right tibial rodding Technique: Fluoroscopic images for procedure Comparison: Prior day radiographs Findings: Six fluoroscopic images obtained. Exposure time 115.2s. DAP 1.1285 Gycm2. Air kerma 2.8506 mGy. Impression: Fluoroscopic images for procedure. Dictated by Too Stone MD @ 09/05/2025 8:43:37 PM (Electronically Signed)
--- NOTE | 2025-09-05 17:55 | PM.ORPRC ---
Procedure Note Date of procedure: 09/05/25 Procedure: PREOPERATIVE DIAGNOSIS: 1. Right tibia shaft fracture, closed, displaced 2. Right proximal fibula fracture POSTOPERATIVE DIAGNOSES: 1. Right tibia shaft fracture, closed, displaced 2. Right proximal fibula fracture PROCEDURE: 1. Right tibia closed reduction and internal fixation with intramedullary nail 2. 47945 - Intraoperative fluoroscopy up to 1 hour SURGEON: Gregory Samuel MD SANDING MACHINE TENDER AUTOMATIC: Park Tellez P.A.-C. An assistant manager of operations was critical for this case to aid in patient positioning, leg manipulation, tissue retraction, instrument positioning, and wound closure. ANESTHESIA: Spinal IMPLANTS: Synthes Tibial Nail - Advanced: 9 mm X 315 mm; 5.0 mm proximal and 5.0 mm proximal and distal interlock screws; 5 mm End Cap. EBL: 100 mL COMPLICATIONS: None evident INDICATIONS: Peter is a 50-year-old female who sustained closed right tibial shaft fracture following a ground level fall yesterday. Surgical stabilization of this fracture is recommended to allow for healing in a more anatomic position, decreased pain, and early mobilization. Prior to procedure, risks and benefits of operative and non operative treatment were discussed with the patient. Risks of surgery to include but not limited to infection, neurovascular injury, malunion, nonunion, hardware complications, compartment syndrome, DVT, heart attack, stroke, and were discussed. After discussion of risks, benefits, and alternatives to surgery, informed consent was obtained and the operative extremity was marked. FINDINGS: Closed, displaced, spiral distal 3rd tibia fracture. Minimally displaced fracture of the proximal fibular neck. PROCEDURE: The patient was brought to the operating room and placed supine on the operating table. Spinal anesthesia was obtained, and the patient was given IV clindamycin preoperatively for prophylaxis. The operative extremity was then prepped and draped in usual sterile fashion using ChloraPrep. A surgical time-out was performed confirming patient identity, surgical site, and surgical procedure. A bump was placed under the knee placing it in approximately 20? of flexion. A midline longitudinal incision measuring approximately 4-5 cm was made extending proximally from the superior pole of patella. Incision was carried through subcutaneous tissues. Electrocautery was used to achieve hemostasis. The quadriceps tendon was identified and was split midline in line with the incision. Adhesions within the joint capsule were released, but patellofemoral joint too tight for insertion of the suprapatellar entry sheath. Therefore the arthrotomy incision was carried around the proximal medial aspect of the patella. The suprapatellar entry sheath was then placed into the knee joint posterior to the patella and advanced to the anterior tibia. The starting guide wire was then drilled in the appropriate position in line with the medial aspect of the lateral intercondylar eminence on the AP view and on the anterior edge of the tibial plateau on the lateral view. Once the guide wire was confirmed to be in the correct position, it was overdrilled with the starting reamer. Guide wire was then removed and replaced with the ball-tipped guidewire. Guidewire was placed into the intramedullary canal and advanced across the fracture while holding the fracture in a reduced position. Guide wire was seated down to the distal physeal scar in the center position of the distal tibia on AP and lateral images. Once the guide wire was in correct position, the tibial length was measured. To hold the fracture in a reduced position, 2 small incisions were made over the anterior in anterior medial tibia. Blunt dissection was used to dissect down to bone. A point reduction clamp was then placed across the fracture to hold in a reduced position. The canal was then reamed sequentially beginning with 8 mm reamer up to the 10.5 mm reamer at which point good cortical contact was felt. At this point decision was made to proceed with the 9 mm x 315 mm tibial nail. After selecting the desired nail, the nail was attached to the insertion guide and advanced into the tibial canal. Fluoroscopic imaging was used to confirm fracture reduction and appropriate position of the nail proximally and distally. After the nail was advanced across the fracture site, the reduction clamp and ball-tipped guide wire were removed. The nail was then fixed distally with two medial to lateral distal interlock screws, which were placed under fluoroscopic guiding using the perfect pilot station technique. Prior to drilling, small skin incisions were made and blunt dissection was used to dissect down to bone. Once drill holes been made, appropriate size screws were secured into position. The nail was then backslapped to place compression across the fracture site. Using the proximal guide, 2 proximal interlock screws were drilled and placed in the medial to lateral direction, 1 in the static position and 1 in the dynamic position. Prior to drilling, small skin incisions were made and blunt dissection was used to dissect down to bone. Fluoroscopic imaging was used to confirm correct screw length and position. The insertion guide was then removed and a 5 mm end cap was placed. Final fluoroscopic images were obtained in AP and lateral planes confirming anatomic reduction of the fracture and appropriate position and placement of the nail and interlock screws. The knee joint was then irrigated with copious amounts of normal saline. Quadriceps tendon was closed with #1 Ethibond [id number] interrupted sutures. All surgical incisions were then irrigated again with normal saline. Proximal incision was closed with 2-0 Vicryl inverted subcutaneous stitches followed by 2-0 running subcuticular Stratafix and Dermabond glue. The small stab incisions for the interlock screws were closed with 2-0 Vicryl subcutaneous stitches followed by 3-0 nylon simple interrupted sutures. Sterile dressings were applied. Patient was then woken from anesthesia and transferred to the PACU in stable condition. POSTOPERATIVE PLAN: 1. Patient will be admitted to the hospital overnight for observation. 2. Weight-bearing status: Weight bear as tolerated 3. Elevate operative extremity 4. Pain control: - Acetaminophen and Oxycodone for pain as needed. -IV pain medications for breakthrough pain -Ice for pain and swelling 5. Postoperative prophylactic antibiotics x2 doses 6. DVT prophylaxis: - 81 mg b.i.d. for 35 days - SCDs non operative leg. 7. Anticipate discharge to home tomorrow. 8. Follow-up in Orthopedic Clinic in 10-14 days for wound check and suture removal.
[2025-09-05] MEDS: CLINDAMYCIN 900 MG/50 ML-D5W 900 MG/50 ML PIGGYBACK 100 MG IVPB (18:05)
--- NOTE | 2025-09-05 19:36 | PC.NURSE ---
End of shift [id number] - Pt alert, oriented, cooperative. Bedrest during shift per MD, pt tolerating fair. Reported pain in R leg as 0-9/10 with less pain when at rest and increased pain with movement/shifting. Medication given per JAN for pain control and improved comfort. Pt reported improvement. Assessment of injured extremity completed as ordered. Capillary refill present and < 3 seconds, pt able to wiggle and curl/grasp with toes without significant increase in pain/discomfort. Pt tolerated RA and NPO diet per MD. To surgery at approximately 1800.
[2025-09-05] MEDS: LACTATED RINGERS 1000 ML 1,000 ML 125 ML IV (20:10)
--- NOTE | 2025-09-05 21:12 | P.ANES_ITS ---
Anesthesia Charges Start Date/Time Anesthesia Start Date: 09/05/25 Anesthesia Start Time: 17:57 Stop Date/Time Anesthesia Stop Date: 09/05/25 Anesthesia Stop Time: 21:10 Coding CPT Codes CPT Codes: ANESTH KNEE AREA SURGERY - 98942 ([id number]) P3 - PATIENT W/SEVERE SYS DISEASE, QZ - PINBALL MACHINE REPAIRER SVC W/O PLASTIC MAKER BY
--- NOTE | 2025-09-05 21:12 | W.ANESCHARGE ---
Anesthesia Charges Start Date/Time Anesthesia Start Date: 09/05/25 Anesthesia Start Time: 17:57 Stop Date/Time Anesthesia Stop Date: 09/05/25 Anesthesia Stop Time: 21:10 Coding CPT Codes CPT Codes: ANESTH KNEE AREA SURGERY - 72241 ([id number]) P3 - PATIENT W/SEVERE SYS DISEASE, QZ - MECHANICAL EQUIPMENT SALES ENGINEER SVC W/O ACCREDITATION MANAGER BY
[2025-09-05] MEDS: SENNOSIDES 1 TAB TABLET 2 TAB PO (23:33)
[2025-09-05] MEDS: ASPIRIN 81 MG TABLET EC PO (23:34)
[2025-09-05] MEDS: GABAPENTIN 600 MG TABLET 1200 MG PO (23:34)
[2025-09-06] VITALS (8 sets, daily range): BP systolic 107–145; BP diastolic 56–82; PULSE 81–102; RESP 12–19; TEMP 36.3–37.2; O2SAT 91–96
[2025-09-06] MEDS: CLINDAMYCIN 900 MG/50 ML-D5W IVPB ×2 (01:12→08:24)
[2025-09-06] MEDS: ACETAMINOPHEN 500 MG TABLET 1000 MG PO ×2 (03:51→12:11)
[2025-09-06] MEDS: ASPIRIN 81 MG TABLET EC PO (08:14)
[2025-09-06] MEDS: SENNOSIDES 1 TAB TABLET 2 TAB PO (08:15)
[2025-09-06] MEDS: DULOXETINE 30 MG CAPSULE DR 60 MG PO (08:15)
[2025-09-06] MEDS: GABAPENTIN 600 MG TABLET PO (08:16)
--- NOTE | 2025-09-06 08:26 | PM.ORPN ---
Subjective Subjective Time Seen by Provider: 08:15 Date Seen: 09/06/25 Principal diagnosis: Right tibia fracture Interval history: One day status post right tibia IM nail. No events overnight. Complains of right lower leg pain. No numbness or tingling. Pain adequately controlled with oxycodone. Ortho Exam Narrative Exam Narrative: General: Alert and oriented in no apparent distress. Musculoskeletal: Right lower extremity was examined. Lower leg compartments were soft, compressible, and nontender. No pain with passive range of motion of toes. Sensation was intact to light touch dorsal and plantar foot. EHL, tibialis anterior, gastrocnemius/soleus were intact. Foot was warm and well perfused. Const Vital Signs, click to edit/add: Vital Signs - 24 hr 09/05/25 11:20 09/05/25 15:00 09/05/25 21:10 Temperature 97.0 F L 97.1 F L 99.1 F Pulse Rate 79 Pulse Rate [Pulse Oximeter] 75 73 Respiratory Rate 16 16 16 Blood Pressure 134/90 H Blood Pressure [Left Arm] 115/75 131/70 Blood Pressure [Right Arm] Pulse Oximetry 97 94 88 Oxygen Delivery Method Room Air Room Air Room Air Oxygen Flow Rate 09/05/25 21:15 09/05/25 21:20 09/05/25 21:25 Temperature Pulse Rate 76 76 83 Pulse Rate [Pulse Oximeter] Respiratory Rate 16 16 16 Blood Pressure 142/95 H 142/88 H 135/87 Blood Pressure [Left Arm] Blood Pressure [Right Arm] Pulse Oximetry 98 95 99 Oxygen Delivery Method Non Rebreather Mask Non Rebreather Mask Nasal Cannula Oxygen Flow Rate 6 6 3 09/05/25 21:30 09/05/25 21:35 09/05/25 21:40 Temperature 98.4 F Pulse Rate 77 78 85 Pulse Rate [Pulse Oximeter] Respiratory Rate 16 14 14 Blood Pressure 108/80 123/81 126/86 Blood Pressure [Left Arm] Blood Pressure [Right Arm] Pulse Oximetry 98 97 98 Oxygen Delivery Method Nasal Cannula Nasal Cannula Nasal Cannula Oxygen Flow Rate 3 3 3 09/05/25 21:45 09/05/25 22:00 09/05/25 22:15 Temperature 97.4 F L Pulse Rate Pulse Rate [Pulse Oximeter] 83 83 83 Respiratory Rate 15 16 16 Blood Pressure Blood Pressure [Left Arm] 119/74 114/81 109/64 Blood Pressure [Right Arm] Pulse Oximetry 92 94 94 Oxygen Delivery Method Nasal Cannula Nasal Cannula Nasal Cannula Oxygen Flow Rate 1 1 1 09/05/25 22:32 09/05/25 22:39 09/05/25 23:00 Temperature 98.1 F Pulse Rate Pulse Rate [Pulse Oximeter] 87 84 Respiratory Rate 16 16 Blood Pressure Blood Pressure [Left Arm] 118/79 106/82 Blood Pressure [Right Arm] Pulse Oximetry 92 93 92 Oxygen Delivery Method Room Air Room Air Room Air Oxygen Flow Rate 09/05/25 23:30 09/06/25 00:00 09/06/25 00:30 Temperature Pulse Rate Pulse Rate [Pulse Oximeter] 81 84 81 Respiratory Rate 16 16 17 Blood Pressure Blood Pressure [Left Arm] 119/70 125/82 112/81 Blood Pressure [Right Arm] Pulse Oximetry 91 92 92 Oxygen Delivery Method Room Air Room Air Room Air Oxygen Flow Rate 09/06/25 01:00 09/06/25 01:30 09/06/25 02:32 Temperature 97.6 F Pulse Rate Pulse Rate [Pulse Oximeter] 95 97 81 Respiratory Rate 17 19 16 Blood Pressure Blood Pressure [Left Arm] 121/73 118/64 107/56 L Blood Pressure [Right Arm] Pulse Oximetry 96 92 91 Oxygen Delivery Method Room Air Room Air Room Air Oxygen Flow Rate 09/06/25 03:44 09/06/25 08:07 Temperature 98.1 F 97.3 F L Pulse Rate Pulse Rate [Pulse Oximeter] 95 102 H Respiratory Rate 17 12 Blood Pressure Blood Pressure [Left Arm] 108/68 Blood Pressure [Right Arm] 125/78 Pulse Oximetry 93 95 Oxygen Delivery Method Room Air Room Air Oxygen Flow Rate Assessment and Plan Assessment and plan (1) Fracture of right tibia and fibula: Problem details: Status post IM nail on 09/05 pain management Status: Acute Assessment and Plan: Doing well. PT to see this morning. 1. Weight-bearing status: Weight bear as tolerated 2. Elevate operative extremity 3. Pain control: - Acetaminophen and Oxycodone for pain as needed. - IV pain medications for breakthrough pain Ice for pain and swelling 4. Postoperative prophylactic antibiotics x2 doses 5. DVT prophylaxis: - 81 mg b.i.d. for 35 days - SCDs non operative leg. 6. Anticipate discharge home today pending PT clearance. 7. Follow-up in Orthopedic Clinic in 10-14 days for wound check and suture removal.
--- NOTE | 2025-09-06 08:27 | PC.NURSE ---
Shift note ([id number]): Patient returned from the OR at 2145. Denied pain at that time. Pleasant, alert and oriented.? Remained in bed. Tolerating regular diet. Purewick patent. Upper dressing on lower right leg has a half-dollar sized amount of bloody drainage. Right leg has non-pitting edema. Given PRN Oxycodone, PRN Dialudid?and ice packs for right leg pain rated 8/10.?
--- NOTE | 2025-09-06 11:07 | PM.ORPN ---
Subjective Subjective Time Seen by Provider: 09:00 Date Seen: 09/06/25 Principal diagnosis: Day 1 s/p right tibia closed reduction and internal fixation with IM nail Interval history: Peter is doing okay and resting comfortably in her bed. She complains of right lower extremity pain that is manageable with icing, acetaminophen and oxycodone. Pain worsens with weightbearing and slight movement. Denies: fever, chills, chest pain, SOB, nausea, vomiting, numbness and tingling distally. Patient has not yet had a bowel movement, but admits to flatulence. Patient has not yet been seen by PT/OT. Anticipate patient will be discharged to home today. Ortho Exam Narrative Exam Narrative: Incision/Dressing: Dressing appears clean and dry. No drainage present. Mepilex intact x 4. Right knee moderately swollen. Silvestre wrap left in place. CMS: Intact distally with 2+ Dorsalis pedis and Posterior Tibial pulses. Confirmed sensation distally. Constitutional: Patient is alert and oriented x3. Patient is in no acute distress and converses without labored breathing. Patient is able to make decisions and demonstrates good insight. Patient is pleasant and cooperative. Affect is full range and appropriate for the circumstances. Const Vital Signs, click to edit/add: Vital Signs - 24 hr 09/05/25 11:20 09/05/25 15:00 09/05/25 21:10 Temperature 97.0 F L 97.1 F L 99.1 F Pulse Rate 79 Pulse Rate [Pulse Oximeter] 75 73 Respiratory Rate 16 16 16 Blood Pressure 134/90 H Blood Pressure [Left Arm] 115/75 131/70 Blood Pressure [Right Arm] Pulse Oximetry 97 94 88 Oxygen Delivery Method Room Air Room Air Room Air Oxygen Flow Rate 09/05/25 21:15 09/05/25 21:20 09/05/25 21:25 Temperature Pulse Rate 76 76 83 Pulse Rate [Pulse Oximeter] Respiratory Rate 16 16 16 Blood Pressure 142/95 H 142/88 H 135/87 Blood Pressure [Left Arm] Blood Pressure [Right Arm] Pulse Oximetry 98 95 99 Oxygen Delivery Method Non Rebreather Mask Non Rebreather Mask Nasal Cannula Oxygen Flow Rate 6 6 3 09/05/25 21:30 09/05/25 21:35 09/05/25 21:40 Temperature 98.4 F Pulse Rate 77 78 85 Pulse Rate [Pulse Oximeter] Respiratory Rate 16 14 14 Blood Pressure 108/80 123/81 126/86 Blood Pressure [Left Arm] Blood Pressure [Right Arm] Pulse Oximetry 98 97 98 Oxygen Delivery Method Nasal Cannula Nasal Cannula Nasal Cannula Oxygen Flow Rate 3 3 3 09/05/25 21:45 09/05/25 22:00 09/05/25 22:15 Temperature 97.4 F L Pulse Rate Pulse Rate [Pulse Oximeter] 83 83 83 Respiratory Rate 15 16 16 Blood Pressure Blood Pressure [Left Arm] 119/74 114/81 109/64 Blood Pressure [Right Arm] Pulse Oximetry 92 94 94 Oxygen Delivery Method Nasal Cannula Nasal Cannula Nasal Cannula Oxygen Flow Rate 1 1 1 09/05/25 22:32 09/05/25 22:39 09/05/25 23:00 Temperature 98.1 F Pulse Rate Pulse Rate [Pulse Oximeter] 87 84 Respiratory Rate 16 16 Blood Pressure Blood Pressure [Left Arm] 118/79 106/82 Blood Pressure [Right Arm] Pulse Oximetry 92 93 92 Oxygen Delivery Method Room Air Room Air Room Air Oxygen Flow Rate 09/05/25 23:30 09/06/25 00:00 09/06/25 00:30 Temperature Pulse Rate Pulse Rate [Pulse Oximeter] 81 84 81 Respiratory Rate 16 16 17 Blood Pressure Blood Pressure [Left Arm] 119/70 125/82 112/81 Blood Pressure [Right Arm] Pulse Oximetry 91 92 92 Oxygen Delivery Method Room Air Room Air Room Air Oxygen Flow Rate 09/06/25 01:00 09/06/25 01:30 09/06/25 02:32 Temperature 97.6 F Pulse Rate Pulse Rate [Pulse Oximeter] 95 97 81 Respiratory Rate 17 19 16 Blood Pressure Blood Pressure [Left Arm] 121/73 118/64 107/56 L Blood Pressure [Right Arm] Pulse Oximetry 96 92 91 Oxygen Delivery Method Room Air Room Air Room Air Oxygen Flow Rate 09/06/25 03:44 09/06/25 08:07 Temperature 98.1 F 97.3 F L Pulse Rate Pulse Rate [Pulse Oximeter] 95 102 H Respiratory Rate 17 12 Blood Pressure Blood Pressure [Left Arm] 108/68 Blood Pressure [Right Arm] 125/78 Pulse Oximetry 93 95 Oxygen Delivery Method Room Air Room Air Oxygen Flow Rate Assessment and Plan Assessment and plan (1) Fracture of right tibia and fibula: Problem details: DOS: 09/06/25, Dr. Samuel. Status: Acute Assessment and Plan: - Complete 23 hour perioperative antibiotics. - PT/OT consults for education and assistance. - Weight bear as tolerated with a walker for assistance. - Prescribed analgesics as needed. Patient is content with current narcotic medications. Minimize narcotic pain medication use; wean off and discontinue as soon as possible. Also recommend elevation above the heart. - DVT prophylaxis: aspirin 81 mg BID x 35 days. Also, frequent ambulation and ankle pumps when sedentary. - Social consult for discharge planning. - Anticipate patient will be discharged to home later today if the patient remains medically stable, pain is controlled and is safe with ambulation. - Return to clinic in 2 weeks for a wound check. Mepilex dressing will be removed at this appointment. Remove sooner if dressing becomes saturated. - Return to clinic in [address] Samuel - Phone Orthopedics with any questions or concerns. [phone]
--- NOTE | 2025-09-06 12:40 | PC.NURSE ---
Discharge: Patient pleasant and cooperative. Patient vitally stable, lungs clear, BS WNL, IV removed, catheter intact. Patient rates right leg pain at most 10/10, 10 mg of oxy given x2 plus scheduled tylenol. Right leg wound dressings C/D/I. Patient is 1 assist/walker/crutches. Patient tolerating regular diet and urinating well by toilet. Patient signed belongings sheet and discharge form, patient had no further questions regarding discharge education. Patient left the floor by wheelchair to home at 1224 with belongings.
== END 2025-09-06 12:24 | disposition home or self-care (01) ==
LOC: ED 22:36 → SS 23:28 → MEDSURG 23:29
PROVIDERS: Family Medicine; Orthopaedic Surgery; Emergency Provider Emergency Medicine; Visit Provider Orthopaedic Surgery
PROC: (CPT 27759; principal; 2025-09-05 15:00)
DX: S82.241A Displaced spiral fracture of shaft of right tibia, initial encounter for closed fracture (principal); S82.491A Other fracture of shaft of right fibula, initial encounter for closed fracture; W10.9XXA Fall (on) (from) unspecified stairs and steps, initial encounter; Y92.038 Other place in apartment as the place of occurrence of the external cause; G47.30 Sleep apnea, unspecified; E66.9 Obesity, unspecified; Z68.41 Body mass index [BMI] 40.0-44.9, adult; M26.52 Limited mandibular range of motion; F17.210 Nicotine dependence, cigarettes, uncomplicated; F12.90 Cannabis use, unspecified, uncomplicated; F41.9 Anxiety disorder, unspecified
CPT/HCPCS: 29515; 27759; 01392; 36415; 73590; 76000; 80048; 80306; 81001; 81003; 82077; 84703; 85025; 87086; 97116; 97161; 97530; 99283; 99285; A9270; C1713; J0736; J1100; J1171; J2250; J2371; J2405; J2704; J3010; J3490; J7030; J7120

== ENCOUNTER 2025-11-04 10:59 | Outpatient (CLI) | payer BC, SELFPAY | END 2025-11-04 11:00 | disposition home or self-care (01) | PROVIDERS: Visit Provider Emergency Medicine | DX: Z11.1 Encounter for screening for respiratory tuberculosis (principal) | CPT/HCPCS: 36415; 86480 ==